=== PATIENT | female | born 1945 | race Asian ===

== ENCOUNTER → 2021-06-09 15:41 | Outpatient (CLI) | payer MEDICARE, OTHER, SELFPAY ==
[2021-06-09 17:00] LABS: Chloride 105 mmol/L (98-107); Potassium 4.2 mmoL/L (3.5-5.1); Sodium 140 mmol/L (136-145)
[2021-06-09 17:02] LABS: Alanine Aminotransferase 21 U/L (12-78); Alkaline Phosphatase 86 U/L (38-126); Aspartate Amino Transferase 32 U/L (14-36); Bilirubin,Total 0.6 mg/dl (0.2-1.3); Blood Urea Nitrogen 12 mg/dl (7-17); Estimated Glomerular Filt Rate 97 ml/min (>60); GFR (African American) 118 ML/MIN (>60)
[2021-06-09 17:03] LABS: Albumin Level 4.5 g/dl (3.5-5.0); Albumin/Globulin Ratio 1.5 (1.1-1.8); Anion Gap 14.2 mEq/L (5-15); Calcium 9.7 mg/dl (8.4-10.2); Carbon Dioxide 25 mmol/L (22.0-30.0); Cholesterol 158 mg/dl (140-200); Globulin 3.1 g/dL (1.3-3.2); Glucose 99 mg/dl (74-100); HDL Cholesterol 52 mg/dl (40-60); Total Protein,Serum 7.6 g/dl (6.3-8.2); Triglycerides 104 mg/dl (30-150); VLDL Cholesterol 21 mg/dL (0-40)
[2021-06-09 17:14] LABS: Direct LDL Cholesterol 78.53 mg/dL (100-129)
[2021-06-09 17:21] LABS: Free T4 (Free Thyroxine) 1.52 ng/dl (0.78-2.19)
[2021-06-09 17:22] LABS: 25-OH Vitamin D, Total 35.6 ng/mL (30-100)
[2021-06-09 17:35] LABS: Thyroid Stimulating Hormone 1.11 uIU/mL (0.465-4.68)
== END ==
PROVIDERS: Visit Provider Physician Assistant
DX: Z00.00 Encounter for general adult medical examination without abnormal findings (principal); E78.5 Hyperlipidemia, unspecified; E55.9 Vitamin D deficiency, unspecified; Z79.899 Other long term (current) drug therapy
CPT/HCPCS: 80053; 80061; 82306; 84439; 84443

== ENCOUNTER → 2021-07-15 12:30 | Outpatient (CLI) | payer MEDICARE, MEDICAID, SELFPAY ==
--- NOTE | 2021-07-15 12:45 | XR_ITS ---
PROCEDURE: XR KNEE LT 4V CLINICAL INDICATION: BL knee pain COMPARISON: No exams were available for comparison FINDINGS: No fracture or dislocation. No lytic or blastic change. There is normal mineralization. There are mild osteoarthritic changes involving all 3 compartments most progressed at the medial compartment and patellofemoral joint. A vertical lucency is noted through the medial aspect of the medial tibial plateau suggesting a nondisplaced fracture which appears old Other findings:None. IMPRESSION: Vertical lucency over the medial corner of the medial tibial plateau. This could represent an old fracture versus atypical osteophyte. Ununited ossicle is also consideration. Please correlate with patient's area of pain and tenderness. Dictated by: Romain Marks MD 07/15/2021 13:43 Romain Marks MD in [place] 07/15/2021 13:43
--- NOTE | 2021-07-15 12:45 | XR_ITS ---
PROCEDURE: XR KNEE RT 4V CLINICAL INDICATION: BL knee pain COMPARISON: No exams were available for comparison FINDINGS: No fracture or dislocation. No lytic or blastic change. There is normal mineralization. Osteoarthritic changes are present involving the medial compartment and patellofemoral joint Other findings:None. IMPRESSION: Osteoarthritis [id number] in nature Dictated by: Romain Marks MD 07/15/2021 13:44 Romain Marks MD in [facility] 07/15/2021 13:44
== END ==
PROVIDERS: PCP Physician Assistant; Visit Provider Orthopaedic Surgery
DX: M25.561 Pain in right knee (principal); M25.562 Pain in left knee
CPT/HCPCS: 73564

== ENCOUNTER → 2021-09-27 07:55 | Outpatient (CLI) | payer SELFPAY ==
--- NOTE | 2021-09-27 07:56 | CT_ITS ---
PROCEDURE: CT HEART W CALCIUM SCORE CLINICAL HISTORY: screening for heart disease COMPARISON: No exams were available for comparison TECHNIQUE: Axial images obtained with sagittal and coronal reformats. All CT scans at the facility use one or more dose reduction, viz: automated exposure control, ma/kV adjustment per patient size (including targeted exams where dose is matched to indication, i.e. head), or iterative reconstruction technique. FINDINGS: Coronary artery calcium score is 1380. Extensive calcific plaque burden with very high cardiovascular disease risk IMPRESSION: Extensive calcific plaque burden with very high cardiovascular disease risk Dictated by: Romain Marks MD 09/27/2021 17:47 Romain Marks MD in [facility] 09/27/2021 17:47
== END ==
PROVIDERS: PCP Physician Assistant; Visit Provider Internal Medicine Cardiovascular Disease
DX: Z13.6 Encounter for screening for cardiovascular disorders (principal); R06.00 Dyspnea, unspecified
CPT/HCPCS: 75571

== ENCOUNTER → 2021-09-27 08:00 | Outpatient (CLI) | payer MEDICARE, OTHER, SELFPAY ==
--- NOTE | 2021-09-27 08:41 | CA_ITS ---
APPROVED REPORT EXAM: Comprehensive 2D, Doppler, and color-flow Echocardiogram Woodworking Machine Feeder: Candace Barrett CRT Ht: 5 ft 1 in Wt: 133lbs BSA: 1.59 BP: 145/77 mmHg Indications: Shortness of Breath, Hyperlipidemia, Hypertension/HDD 2D Dimensions LVOT 1.52 cm (M/F) 1.5-2.5 LA Volume 32.50 mL LA Volume Index 20.40 mL/m2 (M/F) 16-34 M-Mode Dimensions RVDd 2.82 cm (0.9-2.6) LA Diam 3.66 cm (1.9-4.0) LVDd 3.46 cm (3.5-5.7) Ao Diam 3.23 cm (2.0-3.7) LVDs 2.35 cm (3.5-5.7) IVSd 1.28 cm (0.6-1.1) PWd 0.71 cm (0.6-1.1) EF (Teich) 61.40% FS 32.10% EDV (Teich) 49.50 mL ESV (Teich) 19.10 mL LV Diastology E Decel Time 217.00 (160-240 msec) E/A Ratio 0.69 Aortic Valve AI PHT 402.00 ms AO Peak GR. 5.80 mmHg Mitral Valve MV A Velocity 96.00 (40-130 cm/s) E/A Ratio 0.69 MV Decel. Time 217.00 (160-240 ms) Pulmonary Valve PV Peak Velocity 134.00 (50-150 cm/s) Tricuspid Valve TR P. Velocity 228.00 cm/s RAP Estimate 10.00 mmHg RVSP 30.80 mmHg Left Ventricle Left atrium is mildly enlarged, left ventricle is normal size, mild concentric left ventricular hypertrophy, visually estimated ejection fraction 55% with no regional wall motion abnormality, grade 1 diastolic dysfunction seen without tissue Doppler evidence of raise left atrial pressure. Right Ventricle Right atrium and right ventricle are normal size and contractility. Aortic Valve Aortic valve is minimally thickened and fibrosed, there is no aortic stenosis, there is trace aortic insufficiency. Mitral Valve Mitral valve is grossly normal, there is trace mitral regurgitation. Tricuspid Valve Tricuspid grossly normal, there is trace tricuspid regurgitation, tricuspid regurgitation jet velocity is inadequate for calculation of the right ventricular systolic pressure. Pulmonic Valve Pulmonic valve is poorly visualized. Great Vessels Aortic root normal size. Inferior vena cava normal size with normal inspiratory collapse. Pericardium No significant pericardial effusion noted. Conclusion #1. Mildly enlarged left atrium, normal left ventricular size, mild concentric left ventricular hypertrophy, visually estimated ejection fraction 55% with no regional wall motion abnormality, grade 1 diastolic dysfunction seen without tissue Doppler evidence of raise left atrial pressure. #2. Trace aortic, mitral and tricuspid regurgitation. #3. No significant pericardial effusion. #4. Inferior vena cava normal size with normal inspiratory collapse. Electronically signed by : Swapnil Marrero MD 09/27/2021 19:31:47
== END ==
PROVIDERS: PCP Physician Assistant; Visit Provider Internal Medicine Cardiovascular Disease
DX: R06.00 Dyspnea, unspecified (principal); G47.33 Obstructive sleep apnea (adult) (pediatric); R40.0 Somnolence; R06.83 Snoring
CPT/HCPCS: 93306; G0399

== ENCOUNTER → 2021-11-28 11:12 | Outpatient (CLI) | payer MEDICARE, OTHER, SELFPAY | PROVIDERS: PCP Internal Medicine Cardiovascular Disease; Visit Provider Internal Medicine Cardiovascular Disease | DX: R06.02 Shortness of breath (principal) ==

== ENCOUNTER → 2021-12-02 07:26 | Outpatient (CLI) | payer MEDICARE, OTHER, SELFPAY ==
--- NOTE | 2021-12-02 07:26 | NM_ITS ---
APPROVED REPORT Exam: Nuclear Stress Test Indication: HTN, HYPERLIPIDEMIA, FM HX., FAIGUE, SOB Patient Location: Outpatient Stress Tech: Kalee Miller OR Tech:Kristal Crowder ARRT RT (R)(N)(M) Ht: 5 ft 0 in Wt: 130 lbs Bra Size: 38DD HR: 70 bpm BP: 196/93 mmHg BSA: 1.55 m2 History: HTN, HYPERLIPIDEMIA, FM HX., FAIGUE, SOB Procedure: Patient received a 0.4 mg of intravenous Lexiscan, resting heart rate 70 bpm, resting blood pressure 196/93 mmHg, with Lexiscan maximum heart rate achived was 94 bpm which is Less than 85 % of the maximum predicted heart rate and blood pressure was 175/89 mmHg. With Lexiscan, patient denied any complaint of chest pain. Electrocardiogram Resting electrocardiogram shows sinus rhythm nonspecific ST-T changes, with Lexiscan there is less than 1.[address] segment depression noted from the baseline EKG. The EKG portion of the Lexiscan is nondiagnostic. Cardiac Stress and Resting SPECT Images: Cardiac Stress and Resting SPECT images were obtained using technetium 99m Myoview 31.5 mCi stress and 10.63 mCi at rest. Gated SPECT analysis of segmental wall motion and calculation of the ejection fraction also done. Prone images were also obtained. Cardiac stress and rest SPECT images show reversible ischemia involving the inferior inferior apical and anterolateral wall, computer derived ejection fraction is over 65% with no regional wall motion abnormality, right ventricle is normal size and contractility. Conclusion: 1. The EKG portion of the Lexiscan Myoview is nondiagnostic. 2. Scintigraphic evidence of reversible ischemia involving the inferior, inferior apical and anterolateral wall consistent with multivessel coronary artery disease. Computer derived ejection fraction is over 65% with no regional wall motion abnormality, right ventricle is normal size and contractility. 3. Abnormal Lexiscan Myoview study. Electronically signed by : Swapnil Marrero MD 12/02/2021 15:03:00
--- NOTE | 2021-12-02 10:00 | CA_ITS ---
APPROVED REPORT Exam: Pharmacologic Technologist: Kalee Bailey, Ht: 5 ft 11 in Wt: 130 lbs BSA: 1.76 m2 HR: 64 bpm BP: 196/93 mmHg Medical History Medications: Aspirin,,,,, Lipitor,,,,, CeleBREX,,,,, Losartan-HCTZ,,,,, Euthyrox,,,,, Stress Test Details Test: LEXISCAN HR Resting HR: 70 bpm Max Heart Rate (APMHR): 143.650699 bpm Max HR Achieved: 100 bpm Target HR (85% APMHR): 121.437620 bpm % of APMHR: 69.93 Recovery HR: 84 bpm BP Resting BP: 196/93 mmHg Max BP: 196/93 mmHg Recovery BP: 164.0/81.0 mmHg ECG Resting ECG: NSR, Incomplete RBBB pattern Clinical Reason for Termination: Completed Protocol Exercise duration: 04:01 min Highest Stage Achieved: Exercise capacity: 1.0 METs Stress ECG Conclusion Symptoms: None CP Arrhythmais/Ectopy: None ST-T Changes: <1.5mm ST Segment changes Conclusion: Non-Diagnostic Test Summary REST . . . . . . . Resting REST 03:59 . . 70 . 196/ 93 . . Stage 1 01:00 . . 92 . . . . Stage 2 01:00 . . 98 . 166/ 86 . . Stage 3 01:00 . . 94 . 175/ 89 . . Stage 4 01:00 . . 91 . 171/ 90 . . Stage 4 01:01 . . 91 . 171/ 90 . Stop exercise at 04:01 RECOVERY 01:00 . . 91 . . . . RECOVERY 02:00 . . 86 . 153/ 87 . . RECOVERY 03:00 . . 84 . 164/ 81 . . RECOVERY 03:22 . . 87 . 164/ 81 . . Electronically signed by : Swapnil Marrero MD 12/02/2021 14:59:56
== END ==
PROVIDERS: PCP Physician Assistant; Visit Provider Internal Medicine Cardiovascular Disease
DX: E78.5 Hyperlipidemia, unspecified (principal); I10 Essential (primary) hypertension; R06.00 Dyspnea, unspecified
CPT/HCPCS: 78452; 93017; A9502; J2785

== ENCOUNTER 2021-12-05 12:48 | Observation (INO) | payer MEDICARE, OTHER, SELFPAY ==
[2021-12-05] VITALS (24 sets, daily range): BP systolic 100–159; BP diastolic 56–114; PULSE 57–81; RESP 14–19; TEMP 36.7–37.1; O2SAT 93–100; BMI 25.7; BMI 24.0
--- NOTE | 2021-12-05 | IR_ITS ---
APPROVED REPORT Patient Location: [facility] Arborist: HAYDEE Paredes RT (R) PROCEDURES Left heart catheterization Left ventriculogram Selective coronary angiogram INDICATION Abnormal Myoview, Unstable angina/acute coronary syndrome Informed consent was obtained prior to the procedure. COMPLICATIONS NONE Estimated Blood Loss: LESS THAN 10 ML TECHNIQUE One percent lidocaine used to anesthetize the right anterior aspect of the wrist. The right radial artery was accessed via the Seldinger technique. A 6 Kinyarwanda sheath was placed in the right radial artery. 2.5 mg of verapamil, 800 mcg of nitroglycerin, 1mg Lidocaine and 5000 U Heparin were given through the arterial sheath. The Poppa catheter was also used to perform left heart catheterization, left ventriculogram and selective coronary angiogram. At the end of the procedure the sheath was removed good hemostasis was achieved using Traclet band, patient was transferred to the postop holding area in stable condition. ANGIOGRAPHIC RESULTS The left main artery Normal The left anterior descending artery Has mild proximal and mid vessel 10 to 20% nonflow limiting stenoses. 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 The terminal obtuse marginal artery which is 3 mm in diameter has a smooth 30 to 40% concentric stenosis The right coronary artery Is a dominant vessel has proximal and mid vessel mild vascular ectasia with diffuse proximal mid vessel distal 10 to 20% stenosis The BREWER ventriculogram reveals Slightly hyperdynamic at 70 to 75% The left ventricular end-diastolic pressure 20 mmHg IMPRESSION Mild to moderate nonflow limiting obstructive coronary artery disease Hyperdynamic ventricle consistent with hypertensive heart disease Mildly elevated LVEDP consistent with hypertensive heart disease PLAN 1. Medical management for coronary disease 2. Goal LDL of 55 3. Treatment of hypertension which is likely etiology for patient's angina Electronically signed by : Stephen Loaiza MD 12/05/2021 14:06:04
--- NOTE | 2021-12-05 12:42 | ECG_ITS ---
APPROVED REPORT Exam: Resting ECG HR:83 bpm ECG Measurements Heart Rate 83 AXES TX 135 P 47 QRSd 80 QRS 1 QT 352 T 54 QTc 392 Conclusion SINUS RHYTHM MODERATE VOLTAGE CRITERIA FOR LVH, CONSIDER NORMAL VARIANT [MEETS CRITERIA IN ONE OF: R(aVL), S(V1), R(V5), R(V5/V6)+S(V1)] BORDERLINE ECG UNCONFIRMED REPORT Electronically signed by : Khoa Saldivar MD 12/06/2021 13:50:39
--- NOTE | 2021-12-05 12:50 | XR_ITS ---
FINAL REPORT CLINICAL HISTORY: elevated bp FINDINGS: The heart size is normal. There is a prominent aortic knob. The mediastinum is otherwise unremarkable. There are chronic changes in the lung bases. There are no pleural effusions. There is no pneumothorax. There is no osseous abnormality. IMPRESSION: No acute cardiopulmonary process Reviewed, Interpreted and Dictated by Fernando Beal MD Transcribed by Pranay Morrow Authenticated by Fernando Beal MD on 12/05/2021 01:43:58 PM [facility]
--- NOTE | 2021-12-05 12:51 | PC.NURSE ---
called Cardiology for consult.
--- NOTE | 2021-12-05 13:08 | HMH.EDCP ---
ED Disposition Clinical Impression: ST elevation myocardial infarction (STEMI) Qualifiers: Involved coronary artery: left circumflex coronary artery Qualified Code(s): I21.21 - ST elevation (STEMI) myocardial infarction involving left circumflex coronary artery Disposition: Admitted As Inpatient Condition on Discharge: Serious Referrals: Ofelia Armendariz PA [Primary Care Provider] - - Critical Care Critical Care Time: No Attestation: On 12/05/21, the high probability of a clinically significant, sudden or life threatening deterioration of the following system(s) required my full and direct attention, intervention and personal management. The time I documented below is in addition to time spent performing reported procedures but includes the following listed in this critical care notation. Medical Decision Making - Medical Records Medical records reviewed: Yes: I reviewed the patient's medical records. - Rehan Inquiry Pt receiving controlled substance: No Vital Signs: 12/05/21 12:49 Temperature 98.1 F Temperature Source Oral Pulse Rate [Left Radial] 81 Respiratory Rate 14 Blood Pressure [Right Arm] 138/114 H Blood Pressure Mean [Right Arm] 122 Blood Pressure Source [Right Arm] Automatic Cuff Blood Pressure Position [Right Arm] Sitting 02 Sat by Pulse Oximetry 96 Oxygen Delivery Method Room Air Orders (Tests/Meds): ED MEDICATIONS Discontinued Medications Generic Name Dose Route Start Last Admin Trade Name Freq PRN Reason Stop Dose Admin Morphine Sulfate 4 mg 12/05/21 12:51 Morphine 4mg/Ml Syringe IV 12/05/21 12:52 ONCE ONE Nitroglycerin 0.4 mg 12/05/21 12:51 Nitroglycerin 0.4mg Sl Tablet SL 12/05/21 12:52 ONCE ONE Ondansetron HCl 4 mg 12/05/21 12:51 Ondansetron 4mg/2ml Vial IV 12/05/21 12:52 ONCE ONE ORDERS Category Date Time Status XR chest portable Stat Exams 12/05/21 12:50 Ordered Brain Natriuretic Peptide Stat Lab 12/05/21 12:50 Ordered Complete Blood Count Auto Diff Stat Lab 12/05/21 12:50 Ordered Comprehensive Metabolic Panel Stat Lab 12/05/21 12:50 Ordered Lipase Stat Lab 12/05/21 12:50 Ordered PTT [Activated Partial Thrombo Time] Stat Lab 12/05/21 12:50 Ordered Prothrombin Time INR Stat Lab 12/05/21 12:50 Ordered Rapid PCR Covid and Flu A/B Stat Lab 12/05/21 12:51 Ordered TSH [Thyroid Stimulating Hormone] Stat Lab 12/05/21 12:50 Ordered Trop I [Troponin I] Stat Lab 12/05/21 12:50 Ordered Troponin I Q3H Lab 12/05/21 16:00 Ordered Troponin I Q3H Lab 12/05/21 19:00 Ordered - ECG Data Tracing #1 I reviewed this ECG and interpreted as documented below: No ventricular rate 83 bpm, the patient does have some very mild elevation in V1, normal DC interval, normal QTC. ECG initial impression date: 12/05/21 ECG initial impression time: 12:42 - CHERY Score for Non-Stemi Age of Patient: 70-79 years old Heart Rate: 70-89 bpm Systolic Blood Pressure: 120-139 mmhg Serum Creatinine: <0.40 mg/dl CHF Killip Class: I-No CHF Other Risk Factors: ST Segment Deviation Non-Stemi Risk Score: 147 Risk Stratification: [id number] = High Risk Medical Decision Narrative: 76-year-old female presented to the emergency department with some chest discomfort. Patient had abnormal stress test 4 days ago. Coming in with worsening chest pain. Concern for acute coronary syndrome. Cardiology was notified. Patient be transferred to the Senior Test Engineer for intervention. Chest Pain HPI - General Chief Complaint: Chest Pain Stated Complaint: chest pain Time Seen by Provider: 12/05/21 13:00 Mode of Arrival: Ambulatory Limitations: No Limitations Description of Symptoms (Recalled from ER Triage Doc. by RN): c/o chest pain that started 4 days ago with some nausea this morning - History of Present Illness HPI narrative: Is a 76-year-old female presenting with some chest discomfort. Patient has a history of coronary artery disease. She act
--- NOTE | 2021-12-05 13:12 | PC.NURSE ---
Dr reynoso and Claudio Chung in with pt. Pt to go to [facility].
[2021-12-05 13:13] LABS: Chloride 99 mmol/L (98-107); Sodium 135 mmol/L (136-145)
[2021-12-05 13:14] LABS: Potassium 3.8 mmoL/L (3.5-5.1)
[2021-12-05 13:15] LABS: Basophils % 0.4 % (0.1-2.0); Eosinophils # 0.1 K/mm3 (0.0-0.4); Eosinophils % 1.1 % (0.1-12.0); Hemoglobin 13.7 g/dL (12.2-16.2); Lymphocytes # 1.6 K/mm3 (0.7-4.5); Lymphocytes % 21.4 % (10-50); Mean Corpuscular HGB Conc 33.4 g/dL (31.8-35.4); Mean Corpuscular Hemoglobin 29.4 pg (27.0-31.2); Mean Platelet Volume 7.1 fl (7.4-10.4); Monocytes # 0.4 K/mm3 (0.1-1.0); Monocytes % 5.9 % (1.7-9.3); Neutrophils # 5.2 K/mm3 (1.8-7.8); Neutrophils % 71.1 % (37.0-80.0); Platelet Count 216 K/mm3 (142-424); Red Blood Count 4.65 M/mm3 (4.20-5.40); Red Cell Distribution Width 12.7 % (11.5-17.5); White Blood Count 7.3 K/mm3 (4.8-10.8)
[2021-12-05 13:16] LABS: Alanine Aminotransferase 25 U/L (12-78); Albumin Level 4.8 g/dl (3.5-5.0); Albumin/Globulin Ratio 1.5 (1.1-1.8); Alkaline Phosphatase 79 U/L (38-126); Anion Gap 7.8 mEq/L (5-15); Aspartate Amino Transferase 36 U/L (14-36); Bilirubin,Total 0.6 mg/dl (0.2-1.3); Blood Urea Nitrogen 14 mg/dl (7-17); Calcium 9.7 mg/dl (8.4-10.2); Carbon Dioxide 32 mmol/L (22.0-30.0); Creatinine Clearance Estimated 62 mL/min (50-200); Estimated Glomerular Filt Rate 70 ml/min (>60); GFR (African American) 84 ML/MIN (>60); Globulin 3.1 g/dL (1.3-3.2); Glucose 104 mg/dl (74-100); Lipase 183 U/L (23-300); Total Protein,Serum 7.9 g/dl (6.3-8.2)
[2021-12-05 13:20] LABS: Activated Partial Thrombo Time 25.5 seconds (22.8-30.6); INR 0.92 (0.9-1.1); Prothrombin Time 10.5 seconds (10.1-12.5)
[2021-12-05 13:27] LABS: NT Pro Brain Natriuretic Pep. 43.6 pg/mL (0-450)
[2021-12-05 13:31] LABS: Troponin I < 0.01 ng/ml (0.00-0.034)
--- NOTE | 2021-12-05 13:35 | HMH.CNCARD ---
History of Present Illness Consult date: 12/05/21 Requesting physician: Spike Arellano Consult reason: chest pain Chief complaint: chest pain Additional Medical History:: 1. Hypertension A. Echo, 09/2021, mild LAE, normal LV size, mild concentric LVH. EF 55% with no regional wall motion abnormality. Grade 1 diastolic dysfunction. Trace AR, MR and TR. 2. Hyperlipidemia 3. Hypothyroidism, on replacement therapy 4. Coronary disease with chest pain A. Lexiscan Myoview, 1. The EKG portion of the Lexiscan Myoview is nondiagnostic. 2. Scintigraphic evidence of reversible ischemia involving the inferior, inferior apical and anterolateral wall consistent with multivessel coronary artery disease. Computer derived ejection fraction is over 65% with no regional wall motion abnormality, right ventricle is normal size and contractility. 3. Abnormal Lexiscan Myoview study. Electronically signed by : Swapnil Marrero MD 12/02/2021 15:03:00 5. Obstructive sleep apnea by sleep study, 09/2021 showing mild to moderate positional sleep apnea History of present illness: Is a 76-year-old female presenting with some chest discomfort. Patient has a history of coronary artery disease. She actually had a stress test 4 days ago which was abnormal. She is well-known to cardiology here. Patient states that the pain is intensified over the last few days. Supple, left side. Radiates into her left arm. Been constant. More of a dull aching pain. No associated shortness of breath or cough. She denies any headache or change in vision. No focal weakness. No abdominal pain or vomiting. No diarrhea. Patient took aspirin this morning prior to arrival. The above per GLENDA Galicia MD Patient confirms that symptoms onset about 5 hours prior to arrival without significant relief. Patient visibly uncomfortable in the ER at this time. Blood pressure markedly elevated at 170/114 mmHg. She relates having some intermittent discomfort yesterday that resolved on its own with rest. Discussed with Dr. Loaiza who recommends taken the patient to the Casting Machine Set Up Operator due to abnormal EKG with slight ST elevation in lead V1 and slight ST depression in lead V3. Patient recently had CT scan for coronary artery calcium score which is 1380 [facility] History Medical History: Reports:: Hyperlipidemia, Hypertension *Have you ever received a pneumonia vaccine?: Yes *Have you received a flu vaccine this season?: Yes Other Medical History: Reports: Cataracts, Thyroid Disease Other Surgeries: Yes: Colonoscopy, , EGD - *Social History Smoking Status: Never smoker Alcohol Intake: never Alcohol Intake Frequency:: other Substance Use Type: denies use *Occupational Status:: retired Housing: house Household Members: family *Travel in the last 8 weeks: Inside the [facility] Family Hx:: No significant family history Meds Home Medications Medication Instructions Recorded Confirmed Type aspirin 81 mg tablet,delayed 81 mg PO DAILY 10/26/21 12/02/21 History release multivitamin 1 tab PO DAILY 10/26/21 12/02/21 History ubidecarenone-omega 3-vit E 25 1 cap PO DAILY 10/26/21 12/02/21 History mg-150 (90-60) mg-200 unit capsule losartan 100 1 tab PO DAILY #30 tab 11/04/21 12/02/21 Rx mg-hydrochlorothiazide 12.5 mg tablet atorvastatin 20 mg tablet See Rx Instructions .ROUTE 11/24/21 12/02/21 Rx .COMPLEX #90 tab celecoxib 200 mg capsule See Rx Instructions .ROUTE 11/24/21 12/02/21 Rx .COMPLEX #90 cap levothyroxine 50 mcg tablet See Rx Instructions .ROUTE 11/24/21 12/02/21 Rx .COMPLEX #90 tab amlodipine 5 mg tablet 2.5 mg PO DAILY #90 tab 12/02/21 12/02/21 Rx Allergies Allergy/AdvReac Type Severity Reaction Status Date / Time No Known Allergies Allergy Verified 12/02/21 11:10 Exam Vital signs and Labs for Last 24 Hours: Temp Pulse Resp BP Pulse Ox 98.1 F 81 14 138/114 H 96 12/05/21 12:49 12/05/21 12:49 12/05/21
[2021-12-05 13:47] LABS: Thyroid Stimulating Hormone 1.52 uIU/mL (0.465-4.68)
[2021-12-05 14:20] LABS: Coronavirus 19, PCR Not Detected (NotDetected); Influenza A, PCR Not Detected (NotDetected); Influenza B, PCR Not Detected (NotDetected)
--- NOTE | 2021-12-05 14:46 | HMH.PHAVTE ---
[facility] Pharmacy VTE Monitoring - Patient Demographics Admission date: 12/05/21 Report Date: 12/05/21 Time: 14:46 Allergies/Adverse Reactions: Patient Allergies No Known Allergies Allergy (Verified 12/02/21 11:10) Height: 1.52 m Weight: 55.934 kg Patient Problems: Current Active Problems ST elevation myocardial infarction (STEMI) (Acute) Abnormal result of cardiovascular function study (Acute) Elevated coronary artery calcium score (Chronic) Dyspnea (Acute) Hypothyroidism (Chronic) Hyperlipidemia (Chronic) Hypertension (Chronic) - VTE Risk Labs: VTE Related Lab Results Hgb 13.7 g/dL (12.2-16.2) 12/05/21 12:51 Hct 41.0 % (37.0-47.0) 12/05/21 12:51 Plt Count 216 K/mm3 (142-424) 12/05/21 12:51 PT 10.5 seconds (10.1-12.5) 12/05/21 12:51 INR 0.92 (0.9-1.1) 12/05/21 12:51 APTT 25.5 seconds (22.8-30.6) 12/05/21 12:51 BUN 14 mg/dl (7-17) 12/05/21 12:51 Creatinine 0.80 mg/dl (0.52-1.04) 12/05/21 12:51 Estimated Creat Clear 62 mL/min (50-200) 12/05/21 12:51 - Prophylaxis VTE Prophylaxis Ordered?: Yes Types of VTE Prophylaxis: TEDS Knee High Location of Applied Device: Bilateral Lower Extremeties
[2021-12-06] VITALS: PULSE 70
[2021-12-06 03:02] VITALS: BP 154/71; PULSE 85; RESP 20; TEMP 37.1; O2SAT 94
[2021-12-06 04:00] VITALS: PULSE 70
[2021-12-06 04:57] VITALS: BMI 24.7
[2021-12-06 06:58] LABS: Basophils % 0.6 % (0.1-2.0); Eosinophils # 0.1 K/mm3 (0.0-0.4); Eosinophils % 1.7 % (0.1-12.0); Hematocrit 37.6 % (37.0-47.0); Lymphocytes # 1.1 K/mm3 (0.7-4.5); Lymphocytes % 18.3 % (10-50); Mean Corpuscular HGB Conc 31.6 g/dL (31.8-35.4); Mean Corpuscular Hemoglobin 28.7 pg (27.0-31.2); Mean Corpuscular Volume 90.8 fl (81-99); Monocytes # 0.4 K/mm3 (0.1-1.0); Monocytes % 7.7 % (1.7-9.3); Neutrophils # 4.2 K/mm3 (1.8-7.8); Neutrophils % 71.7 % (37.0-80.0); Platelet Count 167 K/mm3 (142-424); Red Blood Count 4.14 M/mm3 (4.20-5.40); Red Cell Distribution Width 13.3 % (11.5-17.5); White Blood Count 5.8 K/mm3 (4.8-10.8)
[2021-12-06 06:59] LABS: Hemoglobin 11.9 g/dL (12.2-16.2)
[2021-12-06 07:05] LABS: Chloride 98 mmol/L (98-107); Potassium 4.1 mmoL/L (3.5-5.1); Sodium 133 mmol/L (136-145)
[2021-12-06 07:08] LABS: Blood Urea Nitrogen 14 mg/dl (7-17); Creatinine Clearance Estimated 39 mL/min (50-200); Estimated Glomerular Filt Rate 48 ml/min (>60); GFR (African American) 58 ML/MIN (>60)
[2021-12-06 07:09] LABS: Anion Gap 7.1 mEq/L (5-15); Calcium 8.6 mg/dl (8.4-10.2); Carbon Dioxide 32 mmol/L (22.0-30.0); Glucose 98 mg/dl (74-100)
[2021-12-06 08:00] VITALS: BP 135/75; PULSE 70; PULSE 77; RESP 18; TEMP 36.6; O2SAT 95
--- NOTE | 2021-12-06 08:00 | HMH.PNCARD ---
Subjective Date: 12/06/21 Time: 08:00 Principal diagnosis: chest pain Interval history: 76-year-old female in bed in no acute distress. Still complains of some left-sided chest discomfort which is reproducible with palpation. She is known to have arthritis and does take Celebrex for it. Exam Vital signs and Labs for Last 24 Hours: Temp Pulse Resp BP Pulse Ox 98.8 F 70 20 154/71 H 94 L 12/06/21 03:02 12/06/21 04:00 12/06/21 03:02 12/06/21 03:02 12/06/21 03:02 Laboratory Results - last 24 hr 12/05/21 12:51: WBC 7.3, RBC 4.65, Hgb 13.7, Hct 41.0, MCV 88.0, MCH 29.4, MCHC 33.4, RDW 12.7, Plt Count 216, MPV 7.1 L, Neut % (Auto) 71.1, Lymph % (Auto) 21.4, Hardee % (Auto) 5.9, Eos % (Auto) 1.1, Baso % (Auto) 0.4, Neut # (Auto) 5.2, Lymph # (Auto) 1.6, Hardee # (Auto) 0.4, Eos # (Auto) 0.1, Baso # (Auto) 0.0 12/05/21 12:51: PT 10.5, INR 0.92, APTT 25.5 12/05/21 12:51: Sodium 135 L, Potassium 3.8, Chloride 99, Carbon Dioxide 32 H, Anion Gap 7.8, BUN 14, Creatinine 0.80, Estimated Creat Clear 62, Estimated GFR 70, Est GFR ( Amer) 84, Glucose 104 H, Calcium 9.7, Total Bilirubin 0.6, AST 36, ALT 25, Alkaline Phosphatase 79, Troponin I < 0.01, NT-Pro-B Natriuret Pep 43.6, Total Protein 7.9, Albumin 4.8, Globulin 3.1, Albumin/Globulin Ratio 1.5, Lipase 183, TSH 1.52 12/05/21 14:17: SARS-CoV-2 (PCR) Not detected, Influenza A Untype (PCR) Not detected, Influenza Type B (PCR) Not detected 12/06/21 06:20: WBC 5.8, RBC 4.14 L, Hgb 11.9 L D, Hct 37.6, MCV 90.8, MCH 28.7, MCHC 31.6 L, RDW 13.3, Plt Count 167, MPV 8.0, Neut % (Auto) 71.7, Lymph % (Auto) 18.3, Hardee % (Auto) 7.7, Eos % (Auto) 1.7, Baso % (Auto) 0.6, Neut # (Auto) 4.2, Lymph # (Auto) 1.1, Hardee # (Auto) 0.4, Eos # (Auto) 0.1, Baso # (Auto) 0.0 12/06/21 06:20: Sodium 133 L, Potassium 4.1, Chloride 98, Carbon Dioxide 32 H, Anion Gap 7.1, BUN 14, Creatinine 1.10 H D, Estimated Creat Clear 39, Estimated GFR 48 L, Est GFR ( Amer) 58 L D, Glucose 98, Calcium 8.6 I & O for Last 24 hours: Intake & Output 12/03/21 12/04/21 12/05/21 12/06/21 11:59 11:59 11:59 11:59 Intake Total 280 / 280 Balance 280 / 280 Weight 126 lb 3.2 oz - *Routine Respiratory Exam Present: CTA bilaterally - *Routine Cardiovascular Exam Present: RRR - *Routine Neurological Exam Present: alert, oriented X3 Progress Note: A&P (1) Abnormal result of cardiovascular function study Status: Acute (2) Dyspnea Status: Acute (3) Elevated coronary artery calcium score Status: Chronic (4) Hyperlipidemia Status: Chronic (5) Hypertension Status: Chronic (6) Hypothyroidism Status: Chronic Assessment and Plan for All Diagnoses:: 1. Clinically stable from a cardiovascular standpoint for discharge home. 2. Home medication recommendations Metoprolol succinate 25 mg daily (new) Losartan 100 mg with HCTZ 12.5 mg daily Amlodipine 2.5 mg daily Aspirin 81 mg daily Atorvastatin 20 mg daily 3. Patient will follow up with Dr. Marrero on Sunday of this week.
--- NOTE | 2021-12-06 09:27 | HMH.DCSUM ---
General - General Admission date:: 12/05/21 Discharge date: 12/06/21 Hospital Course Hospital Course: 12/05/21 Cardiac Catherization: ANGIOGRAPHIC RESULTS The left main artery Normal The left anterior descending artery Has mild proximal and mid vessel 10 to 20% nonflow limiting stenoses. 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 The terminal obtuse marginal artery which is 3 mm in diameter has a smooth 30 to 40% concentric stenosis The right coronary artery Is a dominant vessel has proximal and mid vessel mild vascular ectasia with diffuse proximal mid vessel distal 10 to 20% stenosis The BREWER ventriculogram reveals Slightly hyperdynamic at 70 to 75% The left ventricular end-diastolic pressure 20 mmHg IMPRESSION Mild to moderate nonflow limiting obstructive coronary artery disease Hyperdynamic ventricle consistent with hypertensive heart disease Mildly elevated LVEDP consistent with hypertensive heart disease PLAN 1. Medical management for coronary disease 2. Goal LDL of 55 3. Treatment of hypertension which is likely etiology for patient's angina Electronically signed by : Stephen Loaiza MD [facility] has seen and recommends: 1. Clinically stable from a cardiovascular standpoint for discharge home. 2. Home medication recommendations Metoprolol succinate 25 mg daily (new) Losartan 100 mg with HCTZ 12.5 mg daily Amlodipine 2.5 mg daily Aspirin 81 mg daily Atorvastatin 20 mg daily 3. Patient will follow up with Dr. Marrero on Sunday of this week. PLAN: Objective Vital signs: Temp Pulse Resp BP Pulse Ox 97.9 F 77 18 135/75 95 12/06/21 08:00 12/06/21 08:00 12/06/21 08:00 12/06/21 08:00 12/06/21 08:00 no acute distress Results Labs on day of discharge: Labs from last 24 hours 12/06/21 12/06/21 12/05/21 06:20 06:20 14:17 WBC 5.8 RBC 4.14 L Hgb 11.9 L D Hct 37.6 MCV 90.8 MCH 28.7 MCHC 31.6 L RDW 13.3 Plt Count 167 MPV 8.0 Neut % (Auto) 71.7 Lymph % (Auto) 18.3 Blount % (Auto) 7.7 Eos % (Auto) 1.7 Baso % (Auto) 0.6 Neut # (Auto) 4.2 Lymph # (Auto) 1.1 Blount # (Auto) 0.4 Eos # (Auto) 0.1 Baso # (Auto) 0.0 PT INR APTT Sodium 133 L Potassium 4.1 Chloride 98 Carbon Dioxide 32 H Anion Gap 7.1 BUN 14 Creatinine 1.10 H D Estimated Creat Clear 39 Estimated GFR 48 L Est GFR ( Amer) 58 L D Glucose 98 Calcium 8.6 Total Bilirubin AST ALT Alkaline Phosphatase Troponin I NT-Pro-B Natriuret Pep Total Protein Albumin Globulin Albumin/Globulin Ratio Lipase TSH SARS-CoV-2 (PCR) Not detected Influenza A Untype (PCR) Not detected Influenza Type B (PCR) Not detected 12/05/21 12/05/21 12/05/21 12:51 12:51 12:51 WBC 7.3 RBC 4.65 Hgb 13.7 Hct 41.0 MCV 88.0 MCH 29.4 MCHC 33.4 RDW 12.7 Plt Count 216 MPV 7.1 L Neut % (Auto) 71.1 Lymph % (Auto) 21.4 Blount % (Auto) 5.9 Eos % (Auto) 1.1 Baso % (Auto) 0.4 Neut # (Auto) 5.2 Lymph # (Auto) 1.6 Blount # (Auto) 0.4 Eos # (Auto) 0.1 Baso # (Auto) 0.0 PT 10.5 INR 0.92 APTT 25.5 Sodium 135 L Potassium 3.8 Chloride 99 Carbon Dioxide 32 H Anion Gap 7.8 BUN 14 Creatinine 0.80 Estimated Creat Clear 62 Estimated GFR 70 Est GFR ( Amer) 84 Glucose 104 H Calcium 9.7 Total Bilirubin 0.6 AST 36 ALT 25 Alkaline Phosphatase 79 Troponin I < 0.01 NT-Pro-B Natriuret Pep 43.6 Total Protein 7.9 Albumin 4.8 Globulin 3.1 Albumin/Globulin Ratio 1.5 Lipase 183 TSH 1.52 SARS-CoV-2 (PCR) Influenza A Untype (PCR) Influenza Type B (PCR
--- NOTE | 2021-12-06 09:32 | HMH.HPDC ---
General - General Admission date:: 12/05/21 Discharge date: 12/06/21 *Admission Date: 12/05/21 *Chief complaint: Chest Pain *History of present illness: Is a 76-year-old female presenting with some chest discomfort. Patient has a history of coronary artery disease. She actually had a stress test 4 days ago which was abnormal. She is well-known to cardiology here. Patient states that the pain is intensified over the last few days. Supple, left side. Radiates into her left arm. Been constant. More of a dull aching pain. No associated shortness of breath or cough. She denies any headache or change in vision. No focal weakness. No abdominal pain or vomiting. No diarrhea. Patient took aspirin this morning prior to arrival. The above per GLENDA Galicia MD Patient confirms that symptoms onset about 5 hours prior to arrival without significant relief. Patient visibly uncomfortable in the ER at this time. Blood pressure markedly elevated at 170/114 mmHg. She relates having some intermittent discomfort yesterday that resolved on its own with rest. Discussed with Dr. Loaiza who recommends taken the patient to the [facility] due to abnormal EKG with slight ST elevation in lead V1 and slight ST depression in lead V3. Patient recently had CT scan for coronary artery calcium score which is [address] [facility] History I have reviewed the patient's past medical history: Yes Medical History: Reports:: Hyperlipidemia, Hypertension Denies:: Cancer, Diabetes Mellitus Type 1, Diabetes Mellitus Type 2, MRSA *Have you ever received a pneumonia vaccine?: Yes *Have you received a flu vaccine this season?: Yes Other Medical History: Reports: Cataracts, Thyroid Disease Other Surgeries: Yes: Colonoscopy, , EGD Amputation: No - *Social History Smoking Status: Never smoker Alcohol Intake: current Alcohol Intake Frequency:: holidays/special occasions only Substance Use Type: denies use *Occupational Status:: retired Housing: house Household Members: family *Travel in the last 8 weeks: None Family Hx:: Cancer, Diabetes, Hyperlipidemia, Hypertension Review of Systems - Review of Systems Review of systems:: pertinent systems reviewed and negative unless documented below - Constitutional Reports headache(s), Denies body ache(s), Denies fever(s) - Eyes Denies blurry vision, Denies double vision - ENT Denies abnormal hearing, Denies dental pain, Denies dizziness - *Cardiovascular Reports chest pain, Reports chest pain at rest, Denies shortness of breath - *Respiratory Denies chest congestion, Denies cough, Denies shortness of breath - *Gastrointestinal Denies abdominal pain, Denies change in stools - *Musculoskeletal Denies joint pain, Denies back pain - Integumentary/Breasts Denies bleeding lesions, Denies sensitivity to light - *Neurologic Reports headache(s), Denies abnormal movements, Denies seizure-like activity - Psychiatric Denies anxiety, Denies change in appetite - Endocrine Denies cold intolerance, Denies heat intolerance - Hematologic/Lymphatic Denies easy bleeding, Denies easy bruising - Allergic/Immunologic Denies GI upset with certain foods, Denies tongue swelling Exam Vital signs and Labs for Last 24 Hours: Temp Pulse Resp BP Pulse Ox 97.9 F 77 18 135/75 95 12/06/21 08:00 12/06/21 08:00 12/06/21 08:00 12/06/21 08:00 12/06/21 08:00 Laboratory Results - last 24 hr 12/05/21 12:51: WBC 7.3, RBC 4.65, Hgb 13.7, Hct 41.0, MCV 88.0, MCH 29.4, MCHC 33.4, RDW 12.7, Plt Count 216, MPV 7.1 L, Neut % (Auto) 71.1, Lymph % (Auto) 21.4, Robertson % (Auto) 5.9, Eos % (Auto) 1.1, Baso % (Auto) 0.4, Neut # (Auto) 5.2, Lymph # (Auto) 1.6, Robertson # (Auto) 0.4, Eos # (Auto) 0.1, Baso # (Auto) 0.0 12/05/21 12:51: PT 10.5, INR 0.92, APTT 25.5 12/05/21 12:51: Sodium 135 L, Potassium 3.8, Chloride 99, Carbon Dioxide 32 H, Anion Gap 7.8, BUN 14, Creatinine 0.80, Estimated Creat Clear 62, Estimated GFR 70, Est GFR (A
--- NOTE | 2021-12-06 09:40 | SW/DCPLANNER ---
This patients did confirm during AM rounds that [facility] would be delivering patient CPAP (previously ordered) to home later today or tomorrow. The plan is for this patient to discharge home today.
[2021-12-06 10:03] LABS: C-Reactive Protein < 0.3 mg/L (0-4); Erythrocyte Sedimentation Rate 25 mm/hr (0-30)
[2021-12-06 11:24] VITALS: BP 128/68; PULSE 64; RESP 17; TEMP 36.7; O2SAT 92
--- NOTE | 2021-12-06 13:03 | PC.NURSE ---
Pt waiting on her to pick her up.
--- NOTE | 2021-12-06 13:28 | PC.NURSE ---
pT STATES HER WILL BE HERE TO PICK HER UP AT APPROXIMATELY 1330. IV REMOVED, DISCHARGE INSTRUCTIONS GIVEN TO PT AND SIGNED. PT HAD NO ADDITIONAL QUESTIONS OR CONCERNS W/ DISCHARGE INFO AND VERBALIZED UNDERSTANDING ON NEW MEDICATIONS THAT WERE PRESCRIBED TO HER.
== END 2021-12-06 14:35 | disposition home or self-care (01) ==
LOC: ER 13:49 → CATHLAB 14:29 → 2ND 14:33
PROVIDERS: Internal Medicine; Nurse Practitioner Family; Admitting Provider Emergency Medicine; Emergency Provider Emergency Medicine; PCP Physician Assistant; Visit Provider Emergency Medicine
DX: I25.110 Atherosclerotic heart disease of native coronary artery with unstable angina pectoris (principal); I11.9 Hypertensive heart disease without heart failure; I21.21 ST elevation (STEMI) myocardial infarction involving left circumflex coronary artery; R94.30 Abnormal result of cardiovascular function study, unspecified; E03.9 Hypothyroidism, unspecified; E78.5 Hyperlipidemia, unspecified; Z79.899 Other long term (current) drug therapy; Z20.822 Contact with and (suspected) exposure to COVID-19
CPT/HCPCS: G0378; 36415; 71045; 80048; 80053; 83690; 83880; 84443; 84484; 85025; 85610; 85651; 85730; 86140; 93005; 93458; 96367; 96374; 99152; 99284; C1725; C1769; C9803; J1644; J2405; Q9967; U0003; U0005

== ENCOUNTER → 2022-01-17 13:49 | Outpatient (CLI) | payer MEDICARE, OTHER, SELFPAY ==
--- NOTE | 2022-01-17 13:54 | XR_ITS ---
FINAL REPORT CLINICAL HISTORY: SOA, cough FINDINGS: Two views of the chest were obtained. The heart size and pulmonary vascularity are within normal limits. The mediastinum is normal. No acute pulmonary abnormality is identified. There is no pneumothorax. The bony thorax is intact. IMPRESSION: No active cardiopulmonary disease. Reviewed, Interpreted and Dictated by Harry Whitten III, MD Transcribed by Chiquita Garcia Authenticated by Harry Whitten III, MD on 01/17/2022 03:02:45 PM [facility]
== END ==
PROVIDERS: PCP Physician Assistant; Visit Provider Nurse Practitioner Family
DX: R06.02 Shortness of breath (principal)
CPT/HCPCS: 71046

== ENCOUNTER → 2022-07-18 13:26 | Outpatient (CLI) | payer MEDICARE, OTHER, SELFPAY ==
[2022-07-18 14:16] LABS: Basophils # 0.1 K/mm3 (0-0.2); Basophils % 0.9 % (0.1-2.0); Eosinophils % 0.1 % (0.1-12.0); Hematocrit 37.1 % (37.0-47.0); Hemoglobin 12.2 g/dL (12.2-16.2); Lymphocytes # 1.8 K/mm3 (0.7-4.5); Lymphocytes % 16.4 % (10-50); Mean Corpuscular Hemoglobin 29.9 pg (27.0-31.2); Mean Corpuscular Volume 90.6 fl (81-99); Monocytes # 0.7 K/mm3 (0.1-1.0); Monocytes % 6.7 % (1.7-9.3); Neutrophils # 8.3 K/mm3 (1.8-7.8); Platelet Count 229 K/mm3 (142-424); Red Blood Count 4.09 M/mm3 (4.20-5.40); Red Cell Distribution Width 13.2 % (11.5-17.5); White Blood Count 10.9 K/mm3 (4.8-10.8)
[2022-07-18 14:28] LABS: Alanine Aminotransferase 25 U/L (12-78); Albumin Level 4.4 g/dl (3.5-5.0); Albumin/Globulin Ratio 1.6 (1.1-1.8); Alkaline Phosphatase 95 U/L (38-126); Anion Gap 14.9 mEq/L (5-15); Aspartate Amino Transferase 34 U/L (14-36); Bilirubin,Total 0.2 mg/dl (0.2-1.3); Blood Urea Nitrogen 16 mg/dl (7-17); Calcium 9.6 mg/dl (8.4-10.2); Carbon Dioxide 28 mmol/L (22.0-30.0); Chloride 100 mmol/L (98-107); Chol/HDL Ratio 2.7 (1-3.5); Cholesterol 152 mg/dl (140-200); Estimated Glomerular Filt Rate 81 ml/min (>60); GFR (African American) 98 ML/MIN (>60); Globulin 2.8 g/dL (1.3-3.2); Glucose 111 mg/dl (74-100); HDL Cholesterol 57 mg/dl (40-60); Potassium 4.9 mmoL/L (3.5-5.1); Sodium 138 mmol/L (136-145); Total Protein,Serum 7.2 g/dl (6.3-8.2); Triglycerides 69 mg/dl (30-150); VLDL Cholesterol 14 mg/dL (0-40)
[2022-07-18 14:39] LABS: Direct LDL Cholesterol 71.02 mg/dL (100-129)
[2022-07-18 14:58] LABS: Thyroid Stimulating Hormone 0.41 uIU/mL (0.465-4.68)
[2022-07-18 15:09] LABS: Free T4 (Free Thyroxine) 0.81 ng/dl (0.78-2.19)
== END ==
PROVIDERS: PCP Student in an Organized Health Care Education/Training Program; Visit Provider Student in an Organized Health Care Education/Training Program
DX: I10 Essential (primary) hypertension (principal); R53.83 Other fatigue; K59.00 Constipation, unspecified; E03.9 Hypothyroidism, unspecified
CPT/HCPCS: 80053; 80061; 84439; 84443; 85025

== ENCOUNTER → 2022-11-06 09:23 | Outpatient (CLI) | payer MEDICARE, OTHER, SELFPAY | PROVIDERS: PCP Student in an Organized Health Care Education/Training Program; Visit Provider Student in an Organized Health Care Education/Training Program | DX: J02.9 Acute pharyngitis, unspecified (principal) | CPT/HCPCS: 87070 ==

== ENCOUNTER 2023-01-22 09:09 | Emergency (ER) | payer MEDICARE, OTHER, SELFPAY ==
[2023-01-22 09:40] VITALS: BP 143/70; PULSE 87; RESP 18; TEMP 36.6; O2SAT 98; BMI 25.5
--- NOTE | 2023-01-22 09:46 | XR_ITS ---
FINAL REPORT CLINICAL HISTORY: FALL FINDINGS: LEFT ANKLE: Three views of the left ankle were obtained. There is no acute fracture or dislocation. There are mild degenerative changes. There is a plantar calcaneal spur. There is no soft tissue abnormality. IMPRESSION: No acute bony abnormality. Reviewed, Interpreted and Dictated by Harry Whitten III, MD Transcribed by Pranay Morrow Authenticated and [facility]
--- NOTE | 2023-01-22 10:07 | EXP.UTC ---
Discharge Plan Disposition Patient Disposition: Home, Self-Care Condition: Good Prescriptions Prescriptions: No Action aspirin [Adult Aspirin Regimen] 81 mg tablet,delayed release (DR/EC) 81 mg PO DAILY Co [id number] E-Fish Oil 25-150-200 mg-mg-unit capsule 1 cap PO DAILY multivitamin Tablet 1 tab PO DAILY atorvastatin 20 mg tablet 20 mg PO DAILY Rx Instructions: TAKE ONE TABLET BY MOUTH EVERY DAY AT BEDTIME FOR cholesterol cetirizine [Zyrtec] 10 mg tablet 10 mg PO DAILY amlodipine [Norvasc] 10 mg tablet 10 mg PO DAILY levothyroxine 50 mcg tablet 50 mcg PO DAILY Rx Instructions: TAKE ONE TABLET BY MOUTH EVERY DAY metoprolol succinate 25 mg tablet extended release 24 hr 25 mg PO DAILY fluticasone propionate [Allergy Relief (fluticasone)] 50 mcg/actuation spray,suspension 1 spray intranasal DAILY Rx Instructions: administer into each nostril valsartan 160 mg tablet 160 mg PO DAILY peg 3350-electrolytes [GaviLyte-G] 236-22.74-6.74 -5.86 gram recon soln 240 ml PO Q10M Rx Instructions: until fecal effluent is clear Follow mailed instructions celecoxib 200 MG capsule 200 mg PO DAILY Rx Instructions: TAKE ONE CAPSULE BY MOUTH EVERY DAY --TAKE WITH FOOD-- Referrals Follow up/Referrals: Ofelia Armendariz PA [Primary Care Provider] - See instructions Activity Restrictions/Add. Instructions Additional Instructions/Restrictions: *weight bearing as tolerated *RICE, Rest the extremity, Ice 15-20 minutes 3-4 times daily, Compress- wear the yusuf wrap as discussed as much as possible to help reduce swelling and pain, Elevate the extremity when at rest *Yusuf wrap is for support and help control swelling, use it except in the shower. Be sure that is not to tight but not to loose either *Elevate when resting? *Ibuprofen 600-800mg every 6-8 hours as needed for pain an inflammation. If need something more can take Tylenol in between doses of Ibuprofen to help Immediately follow up with your family doctor for new or worsening of symptoms, or no noticeable improvement over the next 3-5 days Clinical Impressions Clinical Impression: Ankle sprain Instructions Patient Instructions: Ankle Sprain, DI for Ankle Sprain, How To Perform RICE (Rest, Ice, Compress, Elevate) Discharge ED Provider: Lesia Quintanilla [facility] [place] HPI General Stated complaint: AO 01/12/23 left leg pain Mode of Arrival: Ambulatory Source of Information: Patient Limitations: No Limitations Time Seen by Provider: 01/22/23 10:07 Description of Symptoms (Recalled from Triage Doc. by RN): PATIENT C/O LEFT ANKLE PAIN. SHE STATES ON SUNDAY SHE STEPPED OFF OF THE DECK AND ROLLED HER ANKLE HEENT Symptoms (Recalled from RN notes): No Resp Symptoms (Recalled from RN notes): No Skin Symptoms (Recalled from RN notes): No MS Symptoms (Recalled from RN notes): Yes Functional Status (Recalled from RN notes): WNL History of Present Illness Provider Complaint: Patient states on Sunday her dog jumped up on her and she feel off her deck and rolled her left ankle States that since then she has been having pain in her left ankle when she walks on it Denies any other injury Related Data Home Medications Medication Instructions Recorded Confirmed aspirin 81 mg tablet,delayed 81 mg PO DAILY Heart failure 10/26/21 01/09/23 release (Adult Aspirin Regimen) multivitamin 1 tab PO DAILY Supplement 10/26/21 01/09/23 ubidecarenone-omega 3-vit E 25 1 cap PO DAILY Supplement 10/26/21 01/09/23 mg-150 (90-60) mg-200 unit capsule (Co [id number] E-Fish Oil) celecoxib 200 mg capsule 200 mg PO DAILY Arthritis 12/05/21 01/09/23 amlodipine 10 mg tablet (Norvasc) 10 mg PO DAILY htn 01/09/23 01/09/23 atorvastatin 20 mg tablet 20 mg PO DAILY Cholesterol 01/09/23 01/09/23 cetirizine 10 mg tablet (Zyrtec) 10 mg PO DAILY allergies 01/09/23 01/09/23 fluticasone propionate 50 1 spray intranas
[2023-01-22 11:18] VITALS: BP 143/70; PULSE 87; RESP 18; TEMP 36.6; O2SAT 98
== END 2023-01-22 11:22 | disposition home or self-care (01) ==
PROVIDERS: Emergency Provider Nurse Practitioner; PCP Physician Assistant
DX: S93.402A Sprain of unspecified ligament of left ankle, initial encounter (principal); I10 Essential (primary) hypertension; E78.5 Hyperlipidemia, unspecified; E03.9 Hypothyroidism, unspecified; G47.33 Obstructive sleep apnea (adult) (pediatric); W17.4XXA Fall from dock, initial encounter
CPT/HCPCS: 73610; 99212; 99214; G0463

== ENCOUNTER 2023-01-24 09:13 | Day surgery (SDC) | payer MEDICARE, OTHER, SELFPAY ==
[2023-01-09 13:53] VITALS: BMI 24.3
[2023-01-24 09:54] VITALS: BP 151/81; PULSE 94; RESP 18; O2SAT 98
--- NOTE | 2023-01-24 10:58 | P.PN_ITS ---
[facility] Disclaimer: The information contained in this section may have been updated after the patient was seen, as this information can be updated by other users. Medical History Bilateral knee pain CAD (coronary artery disease) Daytime somnolence Dyspnea Hyperlipidemia Hypertension Hypothyroidism Impacted cerumen of right ear Mixed conductive and sensorineural hearing loss of both ears SAMIRA (obstructive sleep apnea) Pain in metatarsus, bilateral Snoring Surgical History No significant past surgical history Family History Other No significant family history Social History Smoking Status: Never smoker alcohol intake: current substance use type: denies use current occupational status: retired Travel in the last 8 weeks: None household members: spouse and family housing: house marital status: caffeine: Yes special poornima needs: No agree to transfusion: No do you feel safe at home: Yes victim of physical abuse: No victim of emotional abuse: No victim of sexual abuse: No would you like helpful sources: No [facility] Anesthesia Checklist Patient Identification Patient Identification: Arm Band Structural Data Admitted From: Home Planned Operative Procedure/s: EGD/Colonoscopy Consent for Planned Operative Procedure(s) Verified: Yes Verified Documents: Surgical Consent and History and Physical NPO Status Verified Time NPO: 00:00 Additional verifications Anesthesia Reactions: No Airway Assessment C-Spine Mobility Assessed: Yes TMJ Mobility Assessed: Yes Dentition: Good Dentition Neurological Assessment Level of Consciousness: Awake and Alert Anesthesia Plan Anesthesia Risk discussed: Yes Anesthesia Plan: Verified ASA Class: II Anesthesia Type: MAC
[2023-01-24 11:03] VITALS: O2SAT 97
--- NOTE | 2023-01-24 11:34 | HMH.SCOPE ---
Procedure: Date: 01/24/23 Patient Date of :: 1945 Procedure Performed:: EGD Indications:: 77 year old presents for EGD for dysphagia. The patient has a history of EGD with esophagea dilatation in the past for dysphagia symptom Performing Provider:: Chintan Merino MD Referring Provider:: Ofelia Armendariz APRN Sedation:: See RN records Procedure:: The gastroscope was gently passed through the incisoral orifice into the oral cavity and under direct visualization the esophagus was intubated. The endoscope was passed down the esophagus, through the stomach, and into the duodenum. Color, texture, mucosa, and anatomy of the esophagus, stomach, and duodenum were carefully examined with the scope. Findings:: Oropharynx: normal Esophagus: normal EG Junction: measured at 35 cm. Empiric dilatation performed with 54F bougie dilator Cardia: normal Fundus: Few small (less than 5 mm in size) polyps. Biopsies obtaind Body: minimal gastritis. Biopsies obtained Antrum: minimal gastritis. Biopsies obtainedl Duodenal bulb: normal Duodenum (second and third portion): normal Impression: Small fundic gland polyps Minimal gastritis Recommendations:: Await pathology results Return for EGD with esophageal dilatation as needed Complications:: None Estimated blood obtained (mL): 0
[2023-01-24 11:35] VITALS: BP 88/55; PULSE 77; RESP 17; TEMP 36.4; O2SAT 96
--- NOTE | 2023-01-24 11:38 | HMH.SCOPE ---
Procedure: Date: 01/24/23 Patient Date of :: 1945 Procedure Performed:: Colonoscopy Indications:: The patient is a 77 year old who presents for surveillance colonoscopy for a history of polyps Performing Provider:: Chintan Merino MD Referring Provider:: Ofelia Armendariz APRN Sedation:: See RN records Procedure:: After placing the patient in the left lateral decubitus position, the colonoscopy was gently inserted into the rectum and under direct visualization advanced to the cecum which was identified by transillumination in the right lower quadrant, identification of the ileocecal valve, appendiceal orifice, and cecal strap. Color, texture, mucosa, and anatomy of the colon were carefully examined with the scope. Preparation as good. Findings:: Anal canal: normal Rectum: normal Sigmoid colon: Sessile polyp 5 mm in size. Removed with cold snare polypectomy. Diverticulosis Descending colon: Sessile polyp less than 5 mm in size. Removed with cold snare polypectomy Splenic flexure: normal Transverse colon: normal without polyps or inflammatory changes Hepatic flexure: normal Ascending colon: Sessile polyp less than 5 mm in size. Removed with cold snare polypectomy. Diverticulosis Cecum: normal Terminal ileum: not visualized Impression: Polyp of ascending colon Polyp of descending colon Polyp of sigmoid colon Recommendations:: Await pathology results Will likely recommend a repeat colonoscopy in 3-5 years Complications:: None Estimated blood obtained (mL): 0
[2023-01-24 11:45] VITALS: BP 114/33; PULSE 80; RESP 16; O2SAT 99
[2023-01-24 11:55] VITALS: BP 116/74; PULSE 77; RESP 17; O2SAT 98
[2023-01-24 12:05] VITALS: BP 106/70; PULSE 73; RESP 17; O2SAT 99
== END 2023-01-24 12:10 | disposition home or self-care (01) ==
PROVIDERS: PCP Physician Assistant; Visit Provider Internal Medicine
PROC: 0DJ08ZZ Inspection of Upper Intestinal Tract, Via Natural or Artificial Opening Endoscopic (ICD-10-PCS; CPT 43235; principal; 2023-01-24 10:30)
DX: Z12.11 Encounter for screening for malignant neoplasm of colon (principal); D12.5 Benign neoplasm of sigmoid colon; D12.4 Benign neoplasm of descending colon; D12.2 Benign neoplasm of ascending colon; Z86.010 Personal history of colon polyps; K57.30 Diverticulosis of large intestine without perforation or abscess without bleeding; K29.70 Gastritis, unspecified, without bleeding; R13.10 Dysphagia, unspecified; Z79.899 Other long term (current) drug therapy
CPT/HCPCS: 43239; 43248; 45385; 88305

== ENCOUNTER → 2023-03-05 13:24 | Outpatient (CLI) | payer MEDICARE, OTHER, SELFPAY ==
[2023-03-05 14:24] LABS: Alanine Aminotransferase 24 U/L (12-78); Albumin Level 4.4 g/dl (3.5-5.0); Albumin/Globulin Ratio 1.7 (1.1-1.8); Alkaline Phosphatase 90 U/L (38-126); Aspartate Amino Transferase 37 U/L (14-36); Bilirubin,Total 0.5 mg/dl (0.2-1.3); Blood Urea Nitrogen 10 mg/dl (7-17); Carbon Dioxide 27 mmol/L (22.0-30.0); Chloride 103 mmol/L (98-107); Chol/HDL Ratio 2.4 (1-3.5); Cholesterol 126 mg/dl (140-200); Estimated Glomerular Filt Rate 81 ml/min (>60); GFR (African American) 98 ML/MIN (>60); Globulin 2.6 g/dL (1.3-3.2); Glucose 99 mg/dl (74-100); HDL Cholesterol 53 mg/dl (40-60); Sodium 139 mmol/L (136-145); Triglycerides 71 mg/dl (30-150); VLDL Cholesterol 14 mg/dL (0-40)
[2023-03-05 14:34] LABS: Basophils % 0.6 % (0.1-2.0); Eosinophils % 0.6 % (0.1-12.0); Hematocrit 37.8 % (37.0-47.0); Hemoglobin 12.5 g/dL (12.2-16.2); Lymphocytes # 1.5 K/mm3 (0.7-4.5); Mean Corpuscular HGB Conc 33.1 g/dL (31.8-35.4); Mean Corpuscular Hemoglobin 29.2 pg (27.0-31.2); Mean Corpuscular Volume 88.1 fl (81-99); Mean Platelet Volume 8.6 fl (7.4-10.4); Monocytes # 0.5 K/mm3 (0.1-1.0); Monocytes % 12.1 % (1.7-9.3); Neutrophils # 1.9 K/mm3 (1.8-7.8); Neutrophils % 48.7 % (37.0-80.0); Platelet Count 193 K/mm3 (142-424); Red Blood Count 4.29 M/mm3 (4.20-5.40); Red Cell Distribution Width 13.2 % (11.5-17.5); White Blood Count 3.8 K/mm3 (4.8-10.8)
[2023-03-05 14:55] LABS: Thyroid Stimulating Hormone 1.47 uIU/mL (0.465-4.68)
== END ==
PROVIDERS: PCP Nurse Practitioner Family; Visit Provider Nurse Practitioner Family
DX: E03.9 Hypothyroidism, unspecified (principal)
CPT/HCPCS: 80053; 80061; 84443; 85025

== ENCOUNTER → 2023-04-25 13:47 | Outpatient (CLI) | payer MEDICARE, OTHER, SELFPAY ==
--- NOTE | 2023-04-25 13:53 | XR_ITS ---
FINAL REPORT CLINICAL HISTORY: right foot pain FINDINGS: RIGHT FOOT SERIES Three views of the right foot were obtained. There is no acute fracture or dislocation. There is mild degenerative change. There is no soft tissue abnormality. There are calcaneal spurs. IMPRESSION: Mild degenerative change. Reviewed, Interpreted and Dictated by Harry Whitten III, MD Transcribed by Cedric Gaspar Authenticated and [facility]
== END ==
PROVIDERS: PCP Physician Assistant; Visit Provider Physician Assistant
DX: M79.671 Pain in right foot (principal)
CPT/HCPCS: 73630

== ENCOUNTER → 2023-05-14 09:48 | Outpatient (CLI) | payer MEDICARE, OTHER, SELFPAY ==
--- NOTE | 2023-05-14 09:48 | MR_ITS ---
FINAL REPORT CLINICAL HISTORY: right foot pain and swelling COMPARISON: None FINDINGS: Multiplanar MR imaging of the right foot was performed without contrast. There is motion on many sequences that overall limits image quality. There is mild and moderate to degenerative change noted. There are multiple osteochondral lesions present in the midfoot. The bony structures are intact without evidence of fracture, bone bruise or marrow edema. There is tendinosis of the peroneus longus and peroneus brevis tendons, along with mild peroneus longus tenosynovitis. There is thinning of the ATFL which may be a partial tear. The musculature is intact. There is abnormal signal in the heel pad that may represent edema versus post inflammatory change. There is posterior plantar fasciitis without a discrete tear seen. No soft tissue mass or cyst is identified. IMPRESSION: Tendinosis of the peroneus longus and brevis tendons, and mild peroneus longus tenosynovitis. Abnormal signal in the heel pad that may represent edema versus inflammation. There is posterior plantar fasciitis without a tear. Thinning of the ATFL which may represent a partial tear. Reviewed, Interpreted and Dictated by Harry Whitten III, MD Transcribed by Loren Saini Authenticated and [facility]
== END ==
PROVIDERS: PCP Physician Assistant; Visit Provider Physician Assistant
DX: M79.671 Pain in right foot (principal)
CPT/HCPCS: 73718

== ENCOUNTER → 2023-08-28 09:06 | Outpatient (CLI) | payer MEDICARE, OTHER, SELFPAY ==
--- NOTE | 2023-08-28 09:10 | XR_ITS ---
FINAL REPORT CLINICAL HISTORY: right knee pain FINDINGS: Right knee Three views were obtained. There is no acute fracture or dislocation. There is moderate medial compartment joint space narrowing. There is prominent osteophyte formation along the undersurface of the patella. There is sharpening of the tibial spines. No soft tissue abnormality is identified. IMPRESSION: Moderate to advanced osteoarthritis. Reviewed, Interpreted and Dictated by Fernando Beal MD Transcribed by Elisa Lowry Authenticated and [facility] [place] [place]
== END ==
PROVIDERS: PCP Physician Assistant; Visit Provider Orthopaedic Surgery
DX: M25.561 Pain in right knee (principal)
CPT/HCPCS: 73562

== ENCOUNTER 2023-12-12 07:33 | Outpatient (CLI) | payer MEDICARE, OTHER, SELFPAY ==
[2023-12-12 08:06] LABS: Basophils % 0.6 % (0.1-2.0); Eosinophils # 0.1 K/mm3 (0.0-0.4); Eosinophils % 1.5 % (0.1-12.0); Hematocrit 40.6 % (37.0-47.0); Hemoglobin 13.1 g/dL (12.2-16.2); Lymphocytes # 2.2 K/mm3 (0.7-4.5); Lymphocytes % 46.5 % (10-50); Mean Corpuscular HGB Conc 32.3 g/dL (31.8-35.4); Mean Corpuscular Hemoglobin 29.3 pg (27.0-31.2); Mean Corpuscular Volume 90.8 fl (81-99); Mean Platelet Volume 7.5 fl (7.4-10.4); Monocytes # 0.3 K/mm3 (0.1-1.0); Neutrophils # 2.1 K/mm3 (1.8-7.8); Neutrophils % 44.4 % (37.0-80.0); Platelet Count 223 K/mm3 (142-424); Red Blood Count 4.47 M/mm3 (4.20-5.40); White Blood Count 4.8 K/mm3 (4.8-10.8)
[2023-12-12 09:10] LABS: Chloride 104 mmol/L (98-107); Potassium 4.4 mmoL/L (3.5-5.1); Sodium 136 mmol/L (136-145)
[2023-12-12 09:12] LABS: Alanine Aminotransferase 29 U/L (12-78); Anion Gap 10.4 mEq/L (5-15); Aspartate Amino Transferase 35 U/L (14-36); Bilirubin,Unconjugated 0.4 mg/dL (0.0-1.1); Blood Urea Nitrogen 12 mg/dl (7-17); Carbon Dioxide 26 mmol/L (22.0-30.0); Estimated Glomerular Filt Rate 81 ml/min (>60); GFR (African American) 98 ML/MIN (>60)
[2023-12-12 09:13] LABS: Albumin Level 4.6 g/dl (3.5-5.0); Alkaline Phosphatase 102 U/L (38-126); Bilirubin,Direct 0.1 mg/dl (0.0-0.4); Bilirubin,Indirect 0.3 mg/dL (0.0-0.9); Bilirubin,Total 0.4 mg/dl (0.2-1.3); Calcium 9.4 mg/dl (8.4-10.2); Cholesterol 153 mg/dl (140-200); Glucose 102 mg/dl (74-100); HDL Cholesterol 51 mg/dl (40-60); Total Protein,Serum 7.3 g/dl (6.3-8.2); Triglycerides 74 mg/dl (30-150); VLDL Cholesterol 15 mg/dL (0-40)
[2023-12-12 09:24] LABS: Direct LDL Cholesterol 63.64 mg/dL (100-129)
[2023-12-12 09:29] LABS: Free T4 (Free Thyroxine) 1.46 ng/dl (0.78-2.19)
[2023-12-12 09:44] LABS: Thyroid Stimulating Hormone 1.45 uIU/mL (0.465-4.68)
== END 2023-12-12 23:59 ==
LOC: LAB 07:34
PROVIDERS: PCP Physician Assistant; Visit Provider Internal Medicine
DX: E78.5 Hyperlipidemia, unspecified (principal); G47.33 Obstructive sleep apnea (adult) (pediatric); I10 Essential (primary) hypertension; I25.10 Atherosclerotic heart disease of native coronary artery without angina pectoris; Z79.899 Other long term (current) drug therapy
CPT/HCPCS: 36415; 80048; 80061; 80076; 83735; 84439; 84443; 85025

== ENCOUNTER 2024-02-27 07:58 | Emergency (ER) | payer MEDICARE, OTHER, SELFPAY ==
[2024-02-27 08:15] VITALS: BP 121/73; PULSE 80; RESP 20; TEMP 36.6; O2SAT 99; BMI 24.7
--- NOTE | 2024-02-27 08:26 | ED_ITS ---
Discharge Plan Disposition Patient Disposition: Home, Self-Care Condition: Good Prescriptions Prescriptions: New amoxicillin 500 mg capsule 500 mg PO BID 10 Days Qty: 20 0RF prednisone 10 mg tablet 10 mg PO BID 5 Days Qty: 10 0RF No Action amlodipine [Norvasc] 10 mg tablet 10 mg PO DAILY 90 Days Qty: 90 3RF atorvastatin 20 mg tablet 20 mg PO HS 90 Days Qty: 90 3RF valsartan 160 mg tablet 160 mg PO DAILY 90 Days Qty: 90 3RF levothyroxine 50 mcg tablet See Rx Instructions .ROUTE .COMPLEX Qty: 90 3RF Dose Instruction: TAKE ONE TABLET BY MOUTH EVERY DAY Rx Instructions: TAKE ONE TABLET BY MOUTH EVERY DAY celecoxib 200 MG capsule 200 mg PO DAILY Hold Instructions: Resume on 01/27/23. Hold NSAIDs for 3 days Rx Instructions: TAKE ONE CAPSULE BY MOUTH EVERY DAY --TAKE WITH FOOD-- Referrals Follow up/Referrals: Ofelia Armendariz PA [Primary Care Provider] - See instructions Activity Restrictions/Add. Instructions Additional Instructions/Restrictions: *Monitor Temp, Over the counter Motrin or Tylenol as directed/as needed Tylenol every 4 hours and Motrin every 6 hours (as long as your family doctor has told you that you can take it) for fever or pain. and straight to ER if unable to lower temp less than 101.0 after medication given *Warm salt water gargles may help to soothe the throat *Throat Lozenges? *Warm fluids like tea with honey may help to soothe the throat? *Sleep elevated *Humidifier/Vaporizer * *If you did not take Penicillin shot or was unable to, start taking antibiotic immediately and make sure that you take it for the FULL length of time although you should start to feel better in 24-48 hours *change toothbrush and toothpaste 24-48 hours after starting to take antibiotics so you do not reinfect yourself Monitor Temp. Tylenol and/or Ibuprofen as needed. ER if fever is no less than 101 despite alternating Tylenol and Ibuprofen * Encourage fluids, water, Gatorade, powerade, pedialyte if infant/toddler/or child *Cold fluids, popsicles and ice cream may feel good on his throat Follow up IMMEDIATELY for new or worsening symptoms or no Noticeable improvement over the next 48-72 hours. 911 for difficulty breathing or swallowing Clinical Impressions Clinical Impression: Strep throat Instructions Patient Instructions: DI for Strep Throat, Strep Throat Discharge ED Provider: Lesia Quintanilla [facility] [place] General Stated complaint: sore throat Mode of Arrival: Ambulatory Source of Information: Patient Limitations: No Limitations Time Seen by Provider: 02/27/24 08:28 Description of Symptoms (Recalled from Triage Doc. by RN): PATIENT C/O SORE THROAT SINCE YESTERDAY. SHE STATES SHE HAD A LOW-GRADE FEVER ONCE, BUT DENIES ANY OTHER SYMPTOMS HEENT Symptoms (Recalled from RN notes): Yes Resp Symptoms (Recalled from RN notes): No Skin Symptoms (Recalled from RN notes): No MS Symptoms (Recalled from RN notes): No Functional Status (Recalled from RN notes): WNL History of Present Illness Provider Complaint: Patient states that she started yesterday with sore throat and hurting when she swallows States she also has a swollen lymph node on her right side of neck that gets itchy at times Related Data Home Medications Medication Instructions Recorded Confirmed celecoxib 200 mg capsule 200 mg PO DAILY Arthritis 12/05/21 02/27/24 Previous Rx's Medication Instructions Recorded amlodipine 10 mg tablet (Norvasc) 10 mg PO DAILY htn 90 days #90 tabs 06/07/23 atorvastatin 20 mg tablet 20 mg PO HS 90 days #90 tabs 06/07/23 valsartan 160 mg tablet 160 mg PO DAILY htn 90 days #90 06/07/23 tabs levothyroxine 50 mcg tablet See Rx Instructions .Route 11/07/23 .COMPLEX #90 tabs amoxicillin 500 mg capsule 500 mg PO BID 10 days #20 caps 02/27/24 prednisone 10 mg tablet 10 mg PO BID 5 days #10 tabs 02/27/24 Allergies Allergy/AdvReac Type Severity Reaction Status Date / Time No Known Allergies Allergy Verified 01/29/24 13:07 Worker's Comp Is this a Worker's Comp case?: No [facility] Disclaimer: The information contained in this section may have been updated after the patient was seen, as this information can be updated by other users. Medical History Insomnia Fatigue Impacted cerumen of right ear Mixed conductive and sensorineural hearing loss of both ears She has moderate to severe sensorineural hearing loss with discrimination scores dropping into the 70 to 80% range. I do feel she is a candidate for amplification. I have made some recommendations for her and we have given her copy of her hearing test. We will follow-up with her at her request Pain in metatarsus, bilateral CAD (coronary artery disease) Currently asymptomatic SAMIRA (obstructive sleep apnea) Currently asymptomatic on AutoPap. [place], [employer] 6/16 cm, ramp: 4 cm, nasal mask, we care, DME Daytime somnolence Snoring Dyspnea Bilateral knee pain Seen and evaluated by orthopedics Hypothyroidism Hyperlipidemia Hypertension Currently normotensive Surgical History No significant past surgical history Family History Other No significant family history Social History Smoking Status: Never smoker alcohol intake: current alcohol intake frequency: holidays/special occasions only substance use type: denies use current occupational status: retired Travel in the last 8 weeks: None household members: spouse and family housing: house marital status: caffeine: Yes special poornima needs: No agree to transfusion: No do you feel safe at home: Yes victim of physical abuse: No victim of emotional abuse: No victim of sexual abuse: No would you like helpful sources: No ROS Obtained: Yes All systems reviewed & no additional complaints except as documented and Yes Systems reviewed as appropriate & no additional complaints except as documented Constitutional Constitutional: Reports system reviewed and no additional complaints, except as documented and Reports as per HPI ENT Ears, Nose, Mouth, and Throat: Reports system reviewed and no additional complaints, except as documented, Reports as per HPI and Reports sore throat Cardiovascular Cardiovascular: Reports system reviewed and no additional complaints, except as documented and Reports as per HPI Respiratory Respiratory: Reports system reviewed and no additional complaints, except as documented and Reports as per HPI Gastrointestinal Gastrointestingal: Reports system reviewed and no additional complaints, except as documented and as per HPI Musculoskeletal Musculoskeletal: Reports system reviewed and no additional complaints, except as documented and Reports as per HPI Physical Exam General General appearance: alert and in no apparent distress ENT ENT exam: Present mucous membranes moist Expanded ENT Exam Throat exam: Present other (pharyngeal erythema noted) Comment: small swollen lymph node noted on right reports feels itchy Respiratory Respiratory exam: Present normal lung sounds bilaterally; Absent respiratory distress or wheezes Cardiovascular Cardiovascular exam: Present regular rate, normal rhythm and normal heart sounds Abdominal Exam Abdominal exam: Present soft and normal bowel sounds; Absent distention or tenderness Neurological Exam Neurological exam: Present alert, oriented X3 and normal gait Medical Decision Making Rehan Inquiry Pt receiving controlled substance: No Rehan was queried for this patient: No Vital Signs: 02/27/24 08:15 Temperature 97.8 F Temperature Source Oral Pulse Rate [Left Brachial] 80 Respiratory Rate 20 Blood Pressure [Left Arm] 121/73 Blood Pressure Mean [Left Arm] 89 Blood Pressure Source [Left Arm] Automatic Cuff Blood Pressure Position [Left Arm] Sitting 02 Sat by Pulse Oximetry 99 Oxygen Delivery Method Room Air
[2024-02-27 08:29] LABS: UTC Strep Screen (Rapid) Positive (Negative)
[2024-02-27 08:35] VITALS: BP 121/73; PULSE 80; RESP 20; TEMP 36.6; O2SAT 99
== END 2024-02-27 08:38 | disposition home or self-care (01) ==
PROVIDERS: Emergency Provider Nurse Practitioner; PCP Physician Assistant
DX: J02.0 Streptococcal pharyngitis (principal); R07.0 Pain in throat
CPT/HCPCS: 87880; 99212; 99214; G0463

== ENCOUNTER 2024-04-23 08:39 | Outpatient (CLI) | payer MEDICARE, OTHER, SELFPAY ==
--- NOTE | 2024-04-23 08:43 | XR_ITS ---
FINAL REPORT CLINICAL HISTORY: foot pain FINDINGS: Left foot Three views were obtained. There is no acute fracture or dislocation. There are mild degenerative changes. Mild hallux valgus deformity is identified. Plantar calcaneal spur is noted. No soft tissue abnormality is identified. IMPRESSION: Degenerative changes as above. Reviewed, Interpreted and Dictated by Harry Whitten III, MD Transcribed by Elisa Lowry Authenticated and [facility]
--- NOTE | 2024-04-23 08:43 | XR_ITS ---
FINAL REPORT CLINICAL HISTORY: foot pain FINDINGS: Right foot Three views were obtained. There is no acute fracture or dislocation. There is mild hallux valgus deformity. Mild degenerative changes are present. There are calcaneal spurs. No soft tissue abnormality is identified. IMPRESSION: Degenerative changes as above. Reviewed, Interpreted and Dictated by Harry Whitten III, MD Transcribed by Elisa Lowry Authenticated and [facility]
== END 2024-04-23 23:59 | disposition home or self-care (01) ==
LOC: RAD 08:40
PROVIDERS: PCP Physician Assistant; Visit Provider Podiatrist
DX: M79.671 Pain in right foot (principal); M79.672 Pain in left foot
CPT/HCPCS: 73630

== ENCOUNTER 2024-05-22 09:39 | Outpatient (CLI) | payer MEDICARE, OTHER, SELFPAY ==
[2024-05-22 10:15] LABS: Basophils # 0.1 K/mm3 (0-0.2); Basophils % 1.3 % (0.1-2.0); Eosinophils # 0.1 K/mm3 (0.0-0.4); Eosinophils % 1.1 % (0.1-12.0); Hematocrit 41.3 % (37.0-47.0); Hemoglobin 13.5 g/dL (12.2-16.2); Lymphocytes # 1.8 K/mm3 (0.7-4.5); Lymphocytes % 39.6 % (10-50); Mean Corpuscular HGB Conc 32.7 g/dL (31.8-35.4); Mean Corpuscular Hemoglobin 29.5 pg (27.0-31.2); Mean Corpuscular Volume 90.3 fl (81-99); Mean Platelet Volume 7.6 fl (7.4-10.4); Monocytes # 0.3 K/mm3 (0.1-1.0); Monocytes % 7.1 % (1.7-9.3); Neutrophils # 2.3 K/mm3 (1.8-7.8); Neutrophils % 50.8 % (37.0-80.0); Platelet Count 189 K/mm3 (142-424); Red Blood Count 4.58 M/mm3 (4.20-5.40); Red Cell Distribution Width 13.6 % (11.5-17.5); White Blood Count 4.6 K/mm3 (4.8-10.8)
[2024-05-22 11:04] LABS: Alanine Aminotransferase 30 U/L (12-78); Albumin Level 4.7 g/dl (3.5-5.0); Albumin/Globulin Ratio 1.6 (1.1-1.8); Alkaline Phosphatase 81 U/L (38-126); Anion Gap 12.3 mEq/L (5-15); Aspartate Amino Transferase 36 U/L (14-36); Bilirubin,Total 0.7 mg/dl (0.2-1.3); Blood Urea Nitrogen 19 mg/dl (7-17); Calcium 9.9 mg/dl (8.4-10.2); Carbon Dioxide 25 mmol/L (22.0-30.0); Chloride 108 mmol/L (98-107); Chol/HDL Ratio 2.5 (1-3.5); Cholesterol 167 mg/dl (140-200); Estimated Glomerular Filt Rate 96 ml/min (>60); GFR (African American) 117 ML/MIN (>60); Globulin 2.9 g/dL (1.3-3.2); Glucose 102 mg/dl (74-100); HDL Cholesterol 67 mg/dl (40-60); Potassium 4.3 mmoL/L (3.5-5.1); Sodium 141 mmol/L (136-145); Total Protein,Serum 7.6 g/dl (6.3-8.2); Triglycerides 92 mg/dl (30-150); VLDL Cholesterol 18 mg/dL (0-40)
[2024-05-22 11:15] LABS: Direct LDL Cholesterol 69.42 mg/dL (100-129)
[2024-05-22 11:21] LABS: 25-OH Vitamin D, Total 52.9 ng/mL (30-100)
[2024-05-22 11:34] LABS: Thyroid Stimulating Hormone 0.88 uIU/mL (0.465-4.68)
== END 2024-05-22 23:59 | disposition home or self-care (01) ==
LOC: LAB 09:40
PROVIDERS: PCP Physician Assistant; Visit Provider Physician Assistant
DX: E78.5 Hyperlipidemia, unspecified (principal); R53.83 Other fatigue; E03.9 Hypothyroidism, unspecified; E55.9 Vitamin D deficiency, unspecified
CPT/HCPCS: 36415; 80050; 80053; 80061; 82306; 84443; 85025

== ENCOUNTER 2024-07-22 15:12 | Outpatient (CLI) | payer MEDICARE, OTHER, SELFPAY ==
--- NOTE | 2024-07-22 15:12 | CT_ITS ---
FINAL REPORT TECHNIQUE: Thin section axial CT images of the facial bones and sinuses were obtained without contrast. Coronal and sagittal reformatted images were also obtained.This study was performed with techniques to keep radiation doses as low as reasonably achievable, (ALARA). Individualized dose reduction techniques using automated exposure control or adjustment of mA and/or kV according to the patient's size were employed. CLINICAL HISTORY: Epistaxis and sinus congestion COMPARISON: None FINDINGS: There is mild mucosal thickening in the ethmoid and left frontal sinuses. No fluid levels are identified. The ostiomeatal units have an unremarkable appearance. There is a left septal deviation present with a left nasal septal spur. No fracture or acute bony abnormality is identified. IMPRESSION: Mild mucosal thickening in the ethmoid and left frontal sinuses. Left septal deviation is present with a left nasal septal spur. Reviewed, Interpreted and Dictated by Harry Whitten III, MD Transcribed by Loren Saini Authenticated and [facility]
== END 2024-07-22 23:59 | disposition home or self-care (01) ==
LOC: RAD 15:12
PROVIDERS: PCP Physician Assistant; Visit Provider Nurse Practitioner
DX: R04.0 Epistaxis (principal); R09.81 Nasal congestion
CPT/HCPCS: 70486

== ENCOUNTER 2024-08-05 10:28 | Outpatient (CLI) | payer MEDICARE, OTHER, SELFPAY ==
[2024-08-05 18:56] LABS: Hemoglobin A1C 5.5 % (4.0-6.0)
[2024-08-05 19:42] LABS: Creatinine,Urine Random 14 mg/dL (Not Estab.); Microalbumin < 6.000 mg/L (0-16.7)
[2024-08-07 11:02] LABS: Hep Be Ag Negative (Negative)
== END 2024-08-05 23:59 | disposition home or self-care (01) ==
LOC: LAB.DROPOF 08-06 10:36
PROVIDERS: PCP Internal Medicine; Visit Provider Internal Medicine
DX: Z11.59 Encounter for screening for other viral diseases (principal); Z13.1 Encounter for screening for diabetes mellitus; I10 Essential (primary) hypertension
CPT/HCPCS: 82043; 82570; 83036; 87350

== ENCOUNTER 2025-02-06 09:49 | Outpatient (CLI) | payer MEDICARE, OTHER, SELFPAY ==
--- NOTE | 2025-02-06 09:51 | XR_ITS ---
FINAL REPORT CLINICAL HISTORY: Hip pain c/o left sided posterior hip pain FINDINGS: SINGLE VIEW PELVIS: A single view of the pelvis was obtained. There is no acute fracture or dislocation. The femoral heads have a normal smooth contour. Joint spaces are preserved. IMPRESSION: No acute bony abnormality. Reviewed, Interpreted and Dictated by Fernando Beal MD Transcribed by Ariana Brandon Authenticated and [facility]
== END 2025-02-06 23:59 | disposition home or self-care (01) ==
LOC: RAD 09:49
PROVIDERS: PCP Internal Medicine; Visit Provider Internal Medicine
DX: M25.552 Pain in left hip (principal); M54.50 Low back pain, unspecified
CPT/HCPCS: 72170

== ENCOUNTER 2025-02-19 09:47 | Outpatient (CLI) | payer MEDICARE, OTHER, SELFPAY ==
--- NOTE | 2025-02-19 09:50 | XR_ITS ---
FINAL REPORT CLINICAL HISTORY: fall 5 days ago FINDINGS: AP and frog leg views of the right hip were obtained. There is no acute fracture or dislocation. Mild degenerative joint disease of the right hip is present. Soft tissues are unremarkable. IMPRESSION: Mild degenerative joint disease of the right hip, with no acute osseous abnormality. Reviewed, Interpreted and Dictated by Nicole Vides MD Transcribed by Loren Saini Authenticated and [facility]
--- NOTE | 2025-02-19 09:50 | XR_ITS ---
FINAL REPORT TECHNIQUE: 4 views right femur CLINICAL HISTORY: fall 5 days ago COMPARISON: None FINDINGS: RIGHT FEMUR: 4 images of the right femur were obtained. There is no evidence of fracture or dislocation. Degenerative joint disease is present in both the right knee and right hip. There is no soft tissue abnormality identified. IMPRESSION: Degenerative change, right knee and right hip, with no acute bony abnormality. Reviewed, Interpreted and Dictated by Nicole Vides MD Transcribed by Loren Saini Authenticated and [facility]
== END 2025-02-19 23:59 | disposition home or self-care (01) ==
LOC: RAD 09:48
PROVIDERS: PCP Internal Medicine; Visit Provider Nurse Practitioner
DX: M16.11 Unilateral primary osteoarthritis, right hip (principal); M17.11 Unilateral primary osteoarthritis, right knee; T14.8XXA Other injury of unspecified body region, initial encounter; W19.XXXA Unspecified fall, initial encounter
CPT/HCPCS: 73502; 73552

== ENCOUNTER 2025-05-07 08:07 | Outpatient (CLI) | payer MEDICARE, OTHER, SELFPAY ==
--- OUTSIDE RECORDS SUMMARY | 2025-05-07 08:09 | XMS_ITS | Data Portability ---
Author Organization [facility] [place] [facility] Address [address] [place] [address] Assessment No assessment recorded. Plan of Treatment Reminders Order Date Submit Date Provider Last Modified By Organization Details Last Modified Time Details Appointments None record ed. Lab None record ed. Referral None record ed. Procedures None record ed. Surgeries None record ed. Imaging None record ed. Medication Orders None record ed. Patient TargetsNo targets recorded. Patient InstructionsNo instructions recorded. Reason for Referral None Reported. Results Created Date Observation Date Name Description Value Unit Range Abnormal Flag Note LastModifiedBy Organization Detail LastModifiedTime 06/22/20 22 06/22/2022 audio gram No observ ation record ed. BARCODE Not Available 2021 11:34:26 Result Notes None recorded. Procedures Surgical History Date Name Laterality Status Provider Name and Address Organization Details Recorded Time 2 Tympanogram completed [place] [address] [place], [address], [facility] 06/22/2022 11:10:59 2 Audiogram completed [place] [address] [place], [address], [facility] 06/22/2022 11:10:57 Imaging Results None recorded. Procedure Notes None recorded. Medical Equipment None Reported. Medications Name Sig Start Date Stop Date Status Note LastModified by Organization Details LastModified Time celecoxib 200 mg capsule TAKE ONE CAPSULE BY MOUTH EVERY DAY --TAKE WITH FOOD-- active Not Available Not Available Not Available amoxicillin 500 mg capsule TAKE ONE CAPSULE BY MOUTH THREE TIMES DAILY FOR 10 DAYS -- FINISH ALL MEDICINE -- active Not Available Not Available Not Available atorvastatin 20 mg tablet TAKE ONE TABLET BY MOUTH EVERY DAY AT BEDTIME FOR cholesterol active Not Available Not Available Not Available azithromycin 250 mg tablet TAKE 2 TABLETS BY MOUTH ON DAY 1, THEN TAKE 1 TABLET DAILY ON DAYS 2-5 active Not Available Not Available No t Available ibuprofen 800 mg tablet TAKE ONE TABLET BY MOUTH FOUR TIMES DAILY --TAKE WITH FOOD-- active Not Available Not Available No t Available hydrocodone 5 mg-acetamino phen 325 mg tablet TAKE ONE TABLET BY MOUTH EVERY 4 TO 6 HOURS NEEDED FOR PAIN MAY CAUSE DROWSINESS active Not Available Not Available N ot Available prednisone 20 mg tablet TAKE ONE TABLET BY MOUTH TWICE DAILY --TAKE WITH FOOD-- active Not Available Not Available No t Available amlodipine 5 mg tablet TAKE ONE TABLET BY MOUTH EVERY DAY active Not Available Not Available No t Available amlodipine 10 mg tablet TAKE ONE TABLET BY MOUTH EVERY DAY active Not Available Not Available No t Available levothyroxin e 50 mcg tablet TAKE ONE TABLET BY MOUTH EVERY DAY active Not Available Not Available No t Available losartan 25 mg tablet TAKE ONE TABLET BY MOUTH EVERY DAY active Not Available Not Available No t Available lisinopril 5 mg tablet TAKE ONE TABLET BY MOUTH EVERY DAY active Not Available Not Available No t Available metoprolol succinate ER 25 mg tablet,exten ded release 24 hr TAKE ONE TABLET BY MOUTH EVERY DAY active Not Available Not Available No t Available losartan 50 mg-hydrochlo rothiazide 12.5 mg tablet TAKE ONE TABLET BY MOUTH EVERY DAY active Not Available Not Available No t Available valsartan 160 mg tablet TAKE ONE TABLET BY MOUTH EVERY DAY active Not Available Not Available No t Available losartan 100 mg-hydrochlo rothiazide 12.5 mg tablet TAKE ONE TABLET BY MOUTH EVERY DAY active Not Available Not Available No t Available Vitals None Recorded Social History None recorded. Functional Status None recorded. Mental Status None recorded. Family History Nothing Reported. Medical History No medical history recorded. Gynecological HistoryNo gynecological history recorded. Obstetrics History GPAL:G 0 P 0 0 0 0 Past Encounters Encounter ID Performer Location Encounter Start Date Encounter Closed Date Diagnosis/Indication Diagnosis SNOMED-CT Code Diagnosis ICD10 Code Diagnosis Note [id number] [place] [facility] [address] [facility] [place] [id number] 06/22/2022 10:14:31 06/22/2022 11:11:42 Sensorineural hearing loss of bilateral ears 549063734 H90.3 Health Concerns Section Related Observation LastModified by Organization Detai ls LastModified Time None Recorded Concern Status LastModified by Organization Details LastModified Time None Recorded Advance Directives Directive None Recorded Payers Insurance Date Sequence Insurance Name Policy Number Policy Cochran Covered Member ID Cochran Member ID Guarantor Name 02/09/2023 2 [facility] (MEDICARE REPLACEMENT/ ADVANTAGE - HMO) [id number] Adilene Farooq [id number] Adilene Farooq 08/18/2022 1 [facility] (MEDICARE REPLACEMENT/ ADVANTAGE - PPO) Adilene Farooq [id number] Adilene Farooq OBGyn Episode No OBEpisode recorded.
--- NOTE | 2025-05-07 08:30 | MM_ITS ---
PROCEDURE INFORMATION: Exam: Bilateral Screening 3D Mammography Exam date and time: 05/07/2025 8:16 AM Age: 79 years old Clinical indication: Screening examination TECHNIQUE: Imaging protocol: Bilateral Screening tomosynthesis and 2D mammography including computer-aided detection (CAD) when performed. COMPARISON: Mammo Screening W Tomosynthesis Bilateral 12/10/2019 10:08 AM FINDINGS: MAMMOGRAPHY: Breast composition: There are scattered areas of fibroglandular density. Mass: None. Architectural distortion: None. Calcifications: No suspicious calcifications. Asymmetric density: None. Skin thickening: None. Axillary adenopathy: None. IMPRESSION: No mammographic evidence of malignancy. Annual screening is recommended unless otherwise clinically indicated. ASSESSMENT: BI-RADS Category 1: Negative.
== END 2025-05-07 23:59 | disposition home or self-care (01) ==
LOC: RAD 08:07
PROVIDERS: PCP Internal Medicine; Visit Provider Internal Medicine
DX: Z12.31 Encounter for screening mammogram for malignant neoplasm of breast (principal); R92.323 Mammographic fibroglandular density, bilateral breasts
CPT/HCPCS: 77063; 77067

== ENCOUNTER 2025-06-03 08:22 | Outpatient (CLI) | payer MEDICARE, OTHER, SELFPAY ==
--- NOTE | 2025-06-03 08:26 | XR_ITS ---
FINAL REPORT CLINICAL HISTORY: worsening knee condition. pain [id number]. swelling. no history of surgery COMPARISON: 07/15/2021 FINDINGS: Right knee Four views were obtained. There is no fracture or dislocation. There is moderate medial compartment joint space narrowing with osteophytes at the medial joint margin. There are moderate osteophytes along the undersurface of the patella. Findings have progressed since previous. No soft tissue abnormality is identified. IMPRESSION: Degenerative changes, progressed from prior. Reviewed, Interpreted and Dictated by Fernando Beal MD Transcribed by Elisa Lowry Authenticated and [facility]
== END 2025-06-03 23:59 | disposition home or self-care (01) ==
LOC: RAD 08:23
PROVIDERS: PCP Internal Medicine; Visit Provider Physician Assistant Surgical
DX: M17.11 Unilateral primary osteoarthritis, right knee (principal)
CPT/HCPCS: 73564

== ENCOUNTER 2025-06-10 10:12 | Outpatient (CLI) | payer MEDICARE, OTHER, SELFPAY ==
[2025-06-10 10:42] LABS: Hematocrit 40.4 % (37.0-47.0); Hemoglobin 13.6 g/dL (12.2-16.2); Immature Granulocytes % 0.2 %; Mean Corpuscular HGB Conc 33.7 g/dL (31.8-35.4); Mean Corpuscular Hemoglobin 28.8 pg (27.0-31.2); Mean Corpuscular Volume 85.6 fl (81-99); Nucleated Red Blood Cells % 0 %; Platelet Count 187 K/mm3 (142-424); Red Blood Count 4.72 M/mm3 (4.20-5.40); Red Cell Distribution Width-SD 39.5 fL; White Blood Count 4.6 K/mm3 (4.8-10.8)
[2025-06-10 11:18] LABS: Free T4 (Free Thyroxine) 1.41 ng/dl (0.78-2.19)
[2025-06-10 13:47] LABS: Albumin Level 5.0 g/dl (3.5-5.0); Chloride 105 mmol/L (98-107)
[2025-06-10 13:48] LABS: Potassium 4.5 mmoL/L (3.5-5.1); Sodium 137 mmol/L (136-145)
[2025-06-10 13:50] LABS: Alanine Aminotransferase 26 U/L (12-78); Alkaline Phosphatase 81 U/L (38-126); Anion Gap 12.5 mEq/L (5-15); Aspartate Amino Transferase 39 U/L (14-36); Bilirubin,Direct 0.1 mg/dl (0.0-0.4); Bilirubin,Indirect 0.5 mg/dL (0.0-0.9); Bilirubin,Total 0.6 mg/dl (0.2-1.3); Bilirubin,Unconjugated 0.5 mg/dL (0.0-1.1); Blood Urea Nitrogen 16 mg/dl (7-17); Carbon Dioxide 24 mmol/L (22.0-30.0); Cholesterol 181 mg/dl (140-200); Creatinine,Serum 0.60 mg/dl (0.52-1.04); Estimated Glomerular Filt Rate 96 ml/min (>60); GFR (African American) 116 ML/MIN (>60); Total Protein,Serum 8.0 g/dl (6.3-8.2); Triglycerides 61 mg/dl (30-150)
[2025-06-10 13:51] LABS: Calcium 9.7 mg/dl (8.4-10.2); Glucose 91 mg/dl (74-100); HDL Cholesterol 69 mg/dl (40-60); Magnesium 1.7 mg/dl (1.6-2.3)
[2025-06-10 14:21] LABS: Thyroid Stimulating Hormone 2.18 uIU/mL (0.465-4.68)
== END 2025-06-10 23:59 | disposition home or self-care (01) ==
LOC: LAB 10:13
PROVIDERS: PCP Internal Medicine; Visit Provider Physician Assistant
DX: I25.10 Atherosclerotic heart disease of native coronary artery without angina pectoris (principal); I10 Essential (primary) hypertension; E78.5 Hyperlipidemia, unspecified
CPT/HCPCS: 36415; 80048; 80061; 80076; 83735; 84439; 84443; 85025

== ENCOUNTER 2025-07-28 08:41 | Outpatient (CLI) | payer MEDICARE, OTHER, SELFPAY ==
--- NOTE | 2025-07-28 08:44 | XR_ITS ---
FINAL REPORT CLINICAL HISTORY: right knee pain..no injury FINDINGS: AP, lateral and oblique views of the right knee were obtained. There is no prior exam for comparison. There is no acute osseous abnormality of the right knee. There is advanced degenerative joint disease. The soft tissues are normal. There is no joint effusion. IMPRESSION: Advanced degenerative joint disease. Reviewed, Interpreted and Dictated by Nicole Vides MD Transcribed by Elisa Lowry Authenticated and [facility]
== END 2025-07-28 23:59 | disposition home or self-care (01) ==
LOC: RAD 08:43
PROVIDERS: PCP Internal Medicine; Visit Provider Podiatrist
DX: M17.11 Unilateral primary osteoarthritis, right knee (principal)
CPT/HCPCS: 73562